=== PATIENT | male | born 1935 | race Caucasian/White ===

== ENCOUNTER 2017-02-12 00:32 | Inpatient (IN) ==
--- NOTE | 2017-02-12 00:44 | Emergency Department Report ---
General Adult HPI - General Stated complaint: fever, can't breath Time Seen by Provider: 02/12/17 00:42 Source: patient, family Mode of arrival: wheelchair Limitations: no limitations - History of Present Illness HPI narrative: 81-year-old male presents to the emergency department with a chief complaint of shortness of breath and chest pain. Patient noted onset of symptoms earlier today. Patient states that recently he have his medications adjusted by his primary care physician. Patient states that he had his diuretic increased but stopped taking the diuretic 2 days ago. He describes his chest pain as mild. It is midsternal without radiation. Patient believes that his chest pain is secondary to the shortness of breath. Patient is anticoagulated on Coumadin. Patient has noted increased swelling in his bilateral lower extremities. Patient was at home when his symptoms began. Symptoms have been persistent in nature since onset. Patient denies any other complaints or associated symptoms. - Related Data Home Medications Medication Instructions Recorded Confirmed Ascorbic Acid [Vitamin C] 500 mg PO DAILY #0 03/18/12 11/28/16 Lutein 6 mg PO DAILY #0 03/18/12 11/28/16 Verapamil HCl [Verapamil ER] 180 mg PO BID #0 03/18/12 11/28/16 Warfarin Sodium 5 mg PO DAILY #0 03/18/12 11/28/16 cloNIDine HCl [Clonidine HCl] 0.1 mg PO BID #0 03/18/12 11/28/16 Famotidine [Acid Branch Lending Manager] 20 mg PO DAILY #0 11/20/12 11/28/16 Hydrocodone/Acetaminophen 1 tab PO BID PRN #0 02/23/15 11/28/16 [Hydrocodon-Acetaminophn 10-325] [place]-3 Fatty Acids/Fish Oil 1 tab PO BID #0 02/23/15 11/28/16 [[place] 3 1,000 mg Softgel] Triamcinolone Acetonide [Nasacort] 2 spray EA NOSTRIL DAILY PRN #0 02/23/1505/15 Vitamins A and D [Vitamin A and D] 2 cap PO HS #0 02/23/15 11/28/16 DiphenhydrAMINE [Benadryl] 25 mg PO HS 11/28/16 11/28/16 Elderberry 400 mg PO BID 11/28/16 11/28/16 Previous Rx's Medication Instructions Recorded Albuterol Sulfate [Proair Hfa] 2 puff INH Q4H #1 inhaler 02/23/15 Allergies Allergy/AdvReac Type Severity Reaction Status Date / Time Sulfa (Sulfonamide Allergy Unknown Verified 02/12/17 00:58 Antibiotics) Review of Systems Constitutional: Denies: fever, chills Eyes: Denies: eye pain, vision change ENT: Denies: ear pain, throat pain Cardiovascular: Reports: chest pain. Denies: palpitations Respiratory: Reports: dyspnea. Denies: cough, wheezes Gastrointestinal: Denies: abdominal pain, nausea, vomiting, diarrhea Genitourinary: Denies: urgency, dysuria Musculoskeletal: Denies: back pain, arthralgia Integumentary: Denies: erythema, rash Neurological: Denies: headache, numbness Psychiatric: Denies: anxiety, depression Endocrine: Denies: fatigue, heat or cold intolerance Hematological/Lymphatic: Denies: easy bleeding, easy bruising Allergic/Immunologic: Denies: facial swelling, urticaria PFSH Patient Stated Medical History Cataracts Yes: SURG Dental Problems WEARS DENTURES Glaucoma Yes: SURG Other HEENT Yes: WEARS GLASSES Hypertension Yes Sleep Apnea Yes: NO CPAP Gastroesophageal Reflux Yes: FOOD RELATED Disease Other Yes: LARGE GROWTH ON KIDNEY Osteoarthritis Yes Blood Transfusions Yes Clinic Medical History Sciatica (Inactive Medical) Surgical History: General: : other. Cardiac: : cardiac cath. Joint: : foot : hi, left hip replacement 2012 Family History: Reviewed and noncontributory - Social History Smoking status: Never smoker Substance use type: does not use Alcohol intake frequency: does not drink Physical Exam - Limitations Limitations: no limitations - General General appearance: alert, in no apparent distress - Normal Exams: Head:: Normocephalic without trauma Eyes:: Pupils are PERRLA w/ EOMI, No scleral icterus, irritation, or foreign bodies noted ENMT:: No facial trauma, nasal exudates, pharyngeal erythema, or exudates are noted Dental: No fractured, loose, or missing teeth noted Neck:: Full range of motion, without adenopathy, JVD, bruits or thyromegaly Chest/Respirations:: Clear all short (course breath sounds bibasilar.), with good airflow, and symmetry bilaterally Cardiovascular:: without murmur or gallop (irregularly irregular rhythm), Pulses 2+ all extremities, capillary refill, <2 seconds all extremities Abdomen:: Bowel sounds positive, soft, non-tender, non-distended, no hepatosplenomegaly, masses or bruits noted Lymphatic:: No lymphadenopathy, or lymphedema noted Musculoskeletal:: No tenderness, or deformity noted, good range of motion, all extremities Integumentary:: No rashes, hives, or bruising noted, hair and nails, without abnormality Neurological:: Patient is alert, and oriented, cranial nerves, motor/sensory/ cerebellar, exams w/o gross deficits, to observation Psychiatric:: Patient exhibits, appropriate attention, emotion and affect Course Vital Signs Temperature 97.8 F 02/12/17 00:38 Pulse Rate 121 H 02/12/17 00:38 Respiratory Rate 24 02/12/17 00:38 Blood Pressure 116/69 02/12/17 00:38 Pulse Oximetry 99 02/12/17 00:38 Temperature 97.8 F 02/12/17 00:38 Pulse Rate 121 H 02/12/17 00:38 Respiratory Rate 24 02/12/17 00:38 Blood Pressure 116/69 02/12/17 00:38 Pulse Oximetry 99 02/12/17 00:38 Medical Decision Making - [facility] Narrative Medical decision making narrative: Labs / imaging were discussed in detail with the patient and family and questions are answered. Patient is given aspirin 324 mg by mouth times one. Patient is given Nitropaste one half inch to the left chest. Patient is given Lasix 40 mg IV times one. Patient is discussed with Dr. Carreno who requested that cardiology be contacted from the ED. Patient is discussed with Dr. Joshi who is comfortable keeping the patient at [facility] and will see and evaluate the patient this morning. He is in agreement with the current plan of management. Patient is admitted to the service of the hospitalist in improved condition. Patient is admitted to the intensive care unit. No further orders from accepting or consulting physicians who were in agreement with the current plan of management. Patient and family are in agreement with the current plan of management. Patient has a long-standing history of atrial fibrillation and is rate controlled in the emergency Department. Patient is anticoagulated on Coumadin. INR is supratheraputic. - Differential Diagnosis atrial fibrillation, CHF, [place], metabolic process - Lab Data Result diagrams: 02/12/17 00:47 02/12/17 00:47 Lab Results 02/12/17 02/12/17 02/12/17 Range/Units 00:47 00:47 00:49 WBC 7.1 (4.5-11.0) T/MM3 RBC 3.11 L (4.50-5.90) M/MM3 Hgb 10.2 L (13.5-17.5) GM/DL Hct 32.8 L (41-53) % MCV 105.5 H (80-100) UM3 MCH 32.8 (26-34) UUG MCHC 31.1 (31-37) GM/DL RDW Std Deviation 60.3 H (36.9-50.2) FL Plt Count 239 (130-400) T/MM3 MPV 10.9 (9.4-12.4) UM3 Immature Gran % (Auto) 0.1 (0.0-0.5) % Neut % (Auto) 70.7 H (33-66) % Lymph % (Auto) 13.7 L (23-45) % [place] % (Auto) 12.5 H (0-9.0) % Eos % (Auto) 2.7 (0-4) % Baso % (Auto) 0.3 (0-2) % Neut # (Auto) 5.0 (1.8-7.7) T/MM3 Lymph # (Auto) 1.0 (1-4.8) T/MM3 [place] # (Auto) 0.9 H (0-0.8) T/MM3 Eos # (Auto) 0.2 (0-0.5) T/MM3 Baso # (Auto) 0.0 (0-0.2) T/MM3 Abs Immat Gran (auto) 0.01 (0.00-0.03) T/MM3 INR 5.81 H* (0.99-1.21) Turbidity < 20 (0-20) Sodium 140 (134-144) MEQ/L Potassium 4.6 (3.6-5) MEQ/L Chloride 102 (98-107) MEQ/L Carbon Dioxide 25 (22-30) MEQ/L Anion Gap 13 (5-15) MEQ/L Creatinine 2.7 H (0.8-1.5) MG/DL GFR Calculation 23 BUN/Creatinine Ratio 19 (6-26) RATIO Glucose 138 H (75-110) MG/DL Calculated Osmolality 285 H (261-280) MOSM/KG Calcium 10.0 (8.4-10.2) MG/DL Total Bilirubin 0.90 (0.20-1.30) MG/DL Icterus Index < 2 (0-7) AST 40 (17-59) U/L ALT 26 (21-72) U/L Alkaline Phosphatase 67 (38-126) U/L Total Protein 7.0 (6.3-8.2) G/DL Albumin 3.9 (3.5-5.0) G/DL Globulin 3.1 (2.4-3.6) G/DL Albumin/Globulin Ratio 1.3 (1.1-2.2) RATIO Specimen Hemolysis < 15 (0-25) - Radiology Data Chest x-ray: Potential fluid overload pattern. - EKG Data EKG #1 EKG results narrative: Atrial fibrillation. 109 bpm. No STEMI. Disposition Clinical Impression: Congestive heart failure Qualifiers: Congestive heart failure type: unspecified congestive heart failure type Congestive heart failure chronicity: unspecified congestive heart failure chronicity Qualified Code(s): I50.9 - Heart failure, unspecified Afib Qualifiers: Atrial fibrillation type: unspecified Qualified Code(s): I48.91 - Unspecified atrial fibrillation Condition: Stable Prescriptions: No Action Warfarin Sodium 5 mg PO DAILY #0 Verapamil HCl [Verapamil ER] 180 mg PO BID #0 [place]-3 Fatty Acids/Fish Oil [[place] 3 1,000 mg Softgel] 1 tab PO BID #0 Vitamins A and D [Vitamin A and D] 2 cap PO HS #0 Albuterol Sulfate [Proair Hfa] 2 puff INH Q4H #1 inhaler DiphenhydrAMINE [Benadryl] 25 mg PO HS Elderberry 400 mg PO BID cloNIDine HCl [Clonidine HCl] 0.1 mg PO BID #0 Lutein 6 mg PO DAILY #0 Ascorbic Acid [Vitamin C] 500 mg PO DAILY #0 Famotidine [Acid Branch Lending Manager] 20 mg PO DAILY #0 Hydrocodone/Acetaminophen [Hydrocodon-Acetaminophn 10-325] 1 tab PO BID PRN # 0 PRN Reason: Pain Triamcinolone Acetonide [Nasacort] 2 spray EA NOSTRIL DAILY PRN #0 PRN Reason: Prn Orders Referrals: MEAGAN THOMPSON [Primary Care Provider] - Time of Disposition: 01:45 (Admit. Dr. Anaya. ) - Seen By: physician
[2017-02-12] MEDS: SALINE FLUSH 10ml SYRINGE IVF PRN ×2 (00:46→08:10)
[2017-02-12] MEDS ORDERED: NITROGLYCERIN 2% OINTMENT 1gm PACKET TP ONE (02:00)
[2017-02-12] MEDS ORDERED: ASPIRIN 81 MG CHEWABLE TABLET PO ONE (02:00)
[2017-02-12] MEDS ORDERED: FUROSEMIDE 40 MG/4 ML INJECTION IVP ONE (02:00)
[2017-02-12] MEDS ORDERED: DiltiaZEM IR 30 MG TABLET PO ONE (02:15)
[2017-02-12 04:51] VITALS: BMI 24.5
--- NOTE | 2017-02-12 06:58 | History & Physical Report ---
History of Present Illness Date: 02/12/17 Chief complaint: chest pain HPI: 81 yo M with PMH of CHF and A. Jose Antonio presented to the ED with reports of SOA and chest pain. He reports his symptoms started about 1 day ago, he states that recently he have his medications adjusted by his primary care physician. He reports that he did stop taking his lasix 2 days ago because it "wasn't working ". He describes his chest pain as mild. It is midsternal without radiation. Patient believes that his chest pain is secondary to the shortness of breath. Patient is anticoagulated on Coumadin. Patient has noted increased swelling in his bilateral lower extremities. Patient was at home when his symptoms began. Symptoms have been persistent in nature since onset. Patient denies any other complaints or associated symptoms. Patient was found to have some mild EKG changes, Cardiology was consulted, they recommended admission and patient would be seen in AM. Review of Systems All systems PM: 10-point ROS was reviewed, no additional remarkable complaints except PFSH Patient Stated Medical History Cataracts Yes: SURG Dental Problems WEARS DENTURES Glaucoma Yes: SURG Other HEENT Yes: WEARS GLASSES Cardiac Arrhythmia Yes Hypertension Yes Sleep Apnea Yes: NO CPAP Gastroesophageal Reflux Yes: FOOD RELATED Disease Other Yes: LARGE GROWTH ON KIDNEY Osteoarthritis Yes Blood Transfusions Yes Clinic Medical History Congestive heart failure (Acute Medical) Afib (Acute Medical) Sciatica (Inactive Medical) Surgical History: General: : other. Cardiac: : cardiac cath. Joint: : foot : hi, left hip replacement 2013 - Social History Smoking status: Former smoker Medications Home Medications Medication Instructions Recorded Confirmed Type Ascorbic Acid [Vitamin C] 500 mg PO DAILY #0 03/18/12 11/28/16 History Lutein 6 mg PO DAILY #0 03/18/12 11/28/16 History Verapamil HCl [Verapamil ER] 180 mg PO BID #0 03/18/12 11/28/16 History Warfarin Sodium 5 mg PO DAILY #0 03/18/12 11/28/16 History cloNIDine HCl [Clonidine HCl] 0.1 mg PO BID #0 03/18/12 11/28/16 History Famotidine [Acid Launch Check Out] 20 mg PO DAILY #0 11/20/12 11/28/16 History Hydrocodone/Acetaminophen 1 tab PO BID PRN #0 02/23/15 11/28/16 History [Hydrocodon-Acetaminophn 10-325] [place]-3 Fatty Acids/Fish Oil 1 tab PO BID #0 02/23/15 11/28/16 History [[place] 3 1,000 mg Softgel] Triamcinolone Acetonide [Nasacort] 2 spray EA NOSTRIL DAILY PRN #0 02/23/1505/15 History Vitamins A and D [Vitamin A and D] 2 cap PO HS #0 02/23/15 11/28/16 History DiphenhydrAMINE [Benadryl] 25 mg PO HS 11/28/16 11/28/16 History Elderberry 400 mg PO BID 11/28/16 11/28/16 History Bumetanide Tab [Bumex Tab] 1 mg PO 02/12/17 History Furosemide [Lasix] 1 tab PO BID 02/12/17 02/12/17 History Allergies Allergy/AdvReac Type Severity Reaction Status Date / Time Sulfa (Sulfonamide Allergy Unknown Verified 02/12/17 00:58 Antibiotics) Exam Vital Signs: Temperature 98.5 F 02/12/17 02:30 Pulse Rate 105 H 02/12/17 05:30 Respiratory Rate 23 02/12/17 05:30 Blood Pressure 131/79 02/12/17 05:00 Pulse Oximetry 92 02/12/17 05:30 Telemetry Rhythm: A-fib Height/Weight/BMI: Height 1.88 m Weight 86.9 kg Body Mass Index 24.5 - Constitutional Present: no acute distress, well nourished, well developed - Routine Respiratory Exam Present: crackles (B/L lower lung short) - Routine Cardiovascular Exam Present: irregularly irregular - Routine Abdominal Exam Present: soft, normoactive bowel sounds, non distended. Absent: tenderness - Routine Skin Exam Present: dry, warm - Routine Neurological Exam Present: alert, oriented X3, CN II-XII intact - Routine Psychiatric Exam Present: normal affect Results - Labs CBC & Chem 7: 02/12/17 00:47 02/12/17 12:49 Assessment and Plan (1) Congestive heart failure Problem details: Acute Current visit: Yes Status: Acute (2) Afib Problem details: With RVR Current visit: Yes Status: Acute (3) Chest pain Current visit: Yes Status: Acute (4) Supratherapeutic INR Current visit: Yes Status: Acute Assessment and Plan: Patient given IV lasix, ASA and nitro paste in the ED. Cardiology consulted, patient to be seen in AM. will trend cardiac enzymes, give 30mg Po cardizem for his A. Fib. Will not give vit K for elevated INR at this time, but will hold coumadin until it is below 3. Patient reports some mild improvement of symptoms after lasix given. Monitor in CCU. Jaymie Tierney M.D. 02/12/17 1:[address] Carreno's note reviewed. Mr. Cuadra interviewed and examined. The patient 's granddaughter provides supplemental history. Records from Dr. Aguiar's office were obtained. CC: Chest pain/dyspnea HPI: Mr. Cuadra is an 81-year-old gentleman with known history of atrial fibrillation was experiencing increased dyspnea for partially one month with accompanying lower extremity edema. Lasix was initiated and the patient was taking multiple doses daily with dose up to 100 mg daily with minimal effect. He says primary care physician 2 days ago and was switched to Bumex 1 mg twice a day but dyspnea has persisted and worsened from exertional dyspnea with nocturnal orthopnea to dyspnea at rest. Patient reports he's had a nonproductive cough and has been sleeping in a chair the last 2 days. He denies PND. He denies palpitations but developed chest pain yesterday evening in the substernal region characterized as a hard pain without nausea, radiation, or diaphoresis. He's had a past cardiac catheterization by Dr. Castro and was told he did not require interventions. Mr. Cuadra presented to the emergency room due to worsening dyspnea and chest pain yesterday evening. EKG demonstrated lateral T-wave inversion possibly due to LVH and initial troponin was 0.074. Patient was in CCU for atrial fibrillation with rapid ventricular response and management of chest pain. Patient reports had a chest x-ray done in the office 2 days ago and was told it was unremarkable. PH/SH/FH: agree with that recorded above with additions of history COPD and large abdominal hernia; lumbar spinal stenosis, macrocytic anemia and chronic renal failure by outpatient records with creatinine 2.29/GFR 25 in 10/12. Past surgical history includes a nephrectomy for benign tumor approximate 5 years ago , TURP, resection of part of the toe due to repetitive trauma, and the previously mentioned left CANDY in March 2012. FH-father , coronary disease; mother old age; one brother skin cancer. SH-patient denies history of smoking, alcohol use, or illicit drug use. He chewed tobacco for many years discontinuing 15 years ago. PCP is Dr. Queenie Aguiar ; DPOA is shared by Irving Cuadra and granddaughter Aylin Guaman KENNEDI (phone numbers on whiteboard in ICU). Patient does not wish to be intubated but is not opposed to acute cardiac interventions if they are needed. ROS: 10 point review as per history of present illness and patient reports having a wound on his sacrum that causes discomfort and limits his ability to change physicians, minor cough when he eats, and recent development of right sciatica radiating down the lateral leg to the knee without numbness for which he's recently seen a back surgeon; patient has to hold on to objects to walk following development of sciatica. EXAM: General-NAD, alert; 98.5 152/67, heart rate 95-108 in my presence HEENT-PERRL, EOMI without nystagmus, conjunctiva clear, sclera anicteric, conjugate gaze, facial structures symmetric, oropharynx clear, neck supple and without adenopathy Lungs-respirations nonlabored at present, good airflow, crackles mid right lung field posteriorly and left lower lung field; decreased breath sounds bilaterally third of the way up posteriorly Cardiac-irregularly irregular, S1-S2, no murmur appreciated Abd-soft, nontender, diminished bowel sounds, large mid abdominal hernia present -nontender Ext-+3 pitting bilateral lower extremity edema Skin-without generalized rash, no wounds on exposed skin surfaces; wound care describes small stage III sacral decubitus ulcer with slough present Neuro-CN 3-12 intact, motor tone/power grossly intact without evidence of weakness right lower extremity associated with sciatica, sensation intact to light touch 4 extremities Psych-calm, cooperative DATA: Chest x-ray reviewed by myself demonstrating cardiomegaly with bilateral pleural effusions and flattened diaphragms, increased vascular markings- consistent with CHF and probable underlying COPD. Flattened diaphragms seen on past x-rays. EKG with sinus rhythm, rapid ventricular response (109), LVH with secondary changes, no acute ST changes by my review. White count 7.1, hemoglobin 10.1 with MCV of 105.5; INR 5.81 Electrolytes unremarkable, BUN 51, creatinine 2.7-2.5, liver enzymes unremarkable Troponin 0.0667 0.074-0.060, proBNP 13,100 BUN/creatinine 42/2.54 with BNP 809 (normal range 15-100) in the office on 02/09 A/P: Acute congestive heart failure Pulmonary edema Atrial fibrillation with RVR Chest pain Acute on chronic renal failure-stage IV Obstructive sleep apnea-possible Hypertension Macrocytic anemia Lumbar spinal stenosis COPD Abdominal hernia DJD Coagulopathy due to warfarin Patient is admitted to the intensive care unit. Rate control was improved overnight with bolus doses of diltiazem. Given chest pain in association with CHF will initiate carvedilol. Cardiology consult-Dr. Joshi. Echocardiogram ordered. Serial troponins unremarkable today. Diuresis initiated overnight with Lasix, minimally effective and will dose Bumex now. Continue to monitor urine output and weights. Breathing treatments as needed. Home medications being updated; warfarin on hold due to elevated INR. Pharmacy consult to assist with warfarin management. After condition stabilizes will obtain nocturnal oximetry. Creatinine slightly above baseline-monitor closely with diuresis; patient is not routinely followed by a clinical nurse occupational medicine but did see Dr. Nguyen in the past. DO NOT INTUBATE order written per patient request. Patient will return to the care of Dr. Aguiar following hospitalization. DVT Prophylaxis: Coumadin, other GI Prophylaxis: Protonix Resuscitation Status: Full Code Hospital Course Summary Disclaimer: The visit summary below is not to be considered part of the above Progress Note. Hospital Course: 02/12/17 Patient is admitted to the intensive care unit with dyspnea, chest pain, and A. fib with RVR. Rate control was improved overnight with bolus doses of diltiazem. Given chest pain in association with CHF will initiate carvedilol. Cardiology consult-Dr. Joshi. Echocardiogram ordered. Serial troponins unremarkable today. Diuresis initiated overnight with Lasix, minimally effective and will dose Bumex now. Continue to monitor urine output and weights. Breathing treatments as needed. Home medications being updated; warfarin on hold due to elevated INR. Pharmacy consult to assist with warfarin management. After condition stabilizes will obtain nocturnal oximetry. Creatinine slightly above baseline-monitor closely with diuresis; patient is not routinely followed by a clinical nurse occupational medicine but did see Dr. Nguyen in the past. DO NOT INTUBATE order written per patient request.
--- NOTE | 2017-02-12 07:59 | XRay Report ---
Indication: SOB PROCEDURE: XR chest 1V: Encounter: Initial Comparison: February 23, 2015 Findings: Pulmonary vascularity is prominent. Small bilateral pleural effusions. No pneumothorax. Cardiac silhouette is moderately enlarged. Mediastinal contours are stable. Impression: Moderate pulmonary edema, likely due to CHF. .
[2017-02-12] MEDS ORDERED: DiltiaZEM 25 MG/5 ML INJECTION IVP ONE ×2 (08:55→22:56)
[2017-02-12] MEDS: SALINE FLUSH 10ml SYRINGE IV PRN ×3 (09:12→15:42)
--- NOTE | 2017-02-12 09:38 | Wound Care Progress Note ---
Wound Management - Patient Status Premedicated Prior to Dressing Change: No - Wound Right Sacrum Wound Type: Pressure Injury Wound Present on Admission?: Yes Wound Staging: Stage III Length: 0.5 Width: 0.4 Depth: 0.1 Wound Bed Appearance: Slough Alicja Wound Appearance: Necrotic Tunneling: No Undermining: No Drainage Amount: None Drainage Odor: No Odor Dressing Status: Changed Primary Dressing: Foam Dressing Dressing Change Date: 02/12/17 Dressing Change Time: 09:37 Dressing Change Patient Tolerance: Tolerated Well (Had a long discussion with pt and family about pt offloading and possiblity of a roho for chairs. Will ask attending to write a script for an offloading cushion.)
[2017-02-12] MEDS ORDERED: CARVEDILOL 6.25 MG TABLET PO SCH (11:06)
[2017-02-12] MEDS ORDERED: WARFARIN - PHARMACY CONSULT MC ONE (11:07)
--- NOTE | 2017-02-12 12:11 | Pharmacy Consult ---
Pharmacy Consult-Warfarin - Laboratory Information ADMIT INR ON 02/12/17 @ 00:49 IS 5.81 - Consult Information COUMADIN CONSULT (Initial): 81 y.o. male with CHF, CP and A Fib admitted with an INR of 5.81. Home med dose of warfarin is 5 mg po daily. (SrCr is 2.7) Dx: CHF with CP and A-Fib Baseline INR = 5.81 Will HOLD Warfarin until INR drops below 3.0. Thank you. Francy Rush, PharmD
--- NOTE | 2017-02-12 13:06 | Cardiology Consult Note ---
<Queenie Murdock - Last Filed: 02/12/17 18:22> History of Present Illness Consult date: 02/12/17 Requesting physician: Ophelia Tierney Consult reason: chest pain, atrial fibrillation Chief complaint: afib, chest pain History of present illness: Corona is a 81 year old male with a history of CHF and A. Fib who presented to the ED with reports of SOA and chest pain. He reported his symptoms started about 1 day ago, he states that recently had his medications adjusted by his primary care physician. He reports that he did stop taking his Lasix 2 days ago because it "wasn't working". He describes his chest pain as mild. It is midsternal without radiation. He believes that his chest pain is secondary to the shortness of breath. He is anticoagulated on Coumadin. He has noted increased swelling in his bilateral lower extremities. Symptoms have been persistent in nature since onset. He is examined in the CCU. He has some conversational dyspnea and is on O2/NC. He denies chest pain at this time but describes his chest pain and substernal pain, denies pressure or tightness. No other symptoms other than dyspnea. He denies recent illness, fever, chills, cough, sore throat, N/V/D, dysuria. Review of Systems - Constitutional Constitutional: Present: as per HPI. Absent: chills, fever(s) - EENMT Eyes: Absent: change in vision Balance: Absent: vertigo Mouth/Throat: Absent: sore throat - Cardiovascular Cardiovascular: Present: chest pain, dyspnea on exertion, orthopnea (sleeps on incline). Absent: palpitations, syncope Vascular: Present: pedal edema - Respiratory Respiratory: Present: cough, dyspnea, dyspnea on exertion - Gastrointestinal Gastrointestinal: Absent: constipation, diarrhea, nausea, vomiting - Genitourinary Genitourinary: Absent: dysuria - Integumentary/Breasts Integumentary: Absent: rash - Neurological Neurological: Absent: dizziness - Endocrine Endocrine: Absent: palpitations PFSH Patient Stated Medical History Cataracts Yes: SURG Dental Problems WEARS DENTURES Glaucoma Yes: SURG Other HEENT Yes: WEARS GLASSES Cardiac Arrhythmia Yes Hypertension Yes Sleep Apnea Yes: NO CPAP Gastroesophageal Reflux Yes: FOOD RELATED Disease Other Yes: 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 Cardiac: : cardiac cath. Joint: : foot : hi, left hip replacement 2012 Family History: Father - [place] in 70s Son - CVA at 58, DM Brother - [place] - Social History Smoking status: Former smoker Substance use type: does not use Alcohol intake frequency: does not drink Housing: house Household members: none Current occupational status: retired Current residence: Apartment/Private Home Medications Home Medications Medication Instructions Recorded Confirmed Type Verapamil HCl [Verapamil ER] 180 mg PO BID #0 03/18/12 02/12/17 History Warfarin Sodium 5 mg PO DAILY #0 03/18/12 02/12/17 History cloNIDine HCl [Clonidine HCl] 0.1 mg PO BID #0 03/18/12 02/12/17 History Triamcinolone Acetonide [Nasacort] 2 spray EA NOSTRIL DAILY PRN #0 02/23/15 History Vitamins A and D [Vitamin A and D] 2 cap PO HS #0 02/23/15 02/12/17 History DiphenhydrAMINE [Benadryl] 50 mg PO HS 11/28/16 02/12/17 History Diazepam [Valium] 5 mg PO PRN 02/12/17 02/12/17 History Furosemide [Lasix] 1 tab PO BID 02/12/17 02/12/17 History Lactobacillus Acidophilus 1 each PO 02/12/17 History [Probiotic] Loratadine 10 mg PO DAILY 02/12/17 02/12/17 History Allergies Allergy/AdvReac Type Severity Reaction Status Date / Time Sulfa (Sulfonamide Allergy Unknown Verified 02/12/17 00:58 Antibiotics) Exam Vital signs: Temperature 97.6 F 02/12/17 12:00 Pulse Rate 104 H 02/12/17 12:00 Respiratory Rate 24 02/12/17 12:00 Blood Pressure 147/69 H 02/12/17 12:00 Pulse Oximetry 98 02/12/17 12:00 - Constitutional mild distress, well nourished, cooperative - Routine HEENT Exam Head: Present: normocephalic ENT: Present: mucous membranes moist - Routine Neck Exam Absent: carotid bruit - Routine Chest/Breast/Axilla Exam Chest wall: Absent: tenderness - Routine Respiratory Exam Present: rales (bibasilar rales), diminished air movement. Absent: CTA bilaterally - Routine Cardiovascular Exam Present: no murmur, irregular rhythm - Routine Abdominal Exam Present: soft, normoactive bowel sounds - Routine Extremities Exam Present: edema - Routine Skin Exam Present: intact, dry, warm - Routine Neurological Exam Present: alert, oriented X3 - Routine Psychiatric Exam Present: normal affect, normal thought process Results 02/12/17 00:47 02/12/17 12:49 Cardiac Enzymes 02/12/17 Range/Units 08:02 Troponin I 0.074 (0-0.12) ng/ml Intake and Output 02/11/17 02/12/17 02/12/17 22:59 06:59 14:59 Intake Total 120 / 120 Output Total 500 / 500 115 / 115 Balance -500 / -500 5 / 5 Intake: Oral 120 / 120 Output: Urine 350 / 350 Urine Amount (Catheter) 150 / 150 115 / 115 Other: Urine Appearance Clear Urine Color Yellow Yellow Weight 191 lb 9.307 oz 204 lb 2.369 oz Patient Weight 02/13/17 06:59 Weight 204 lb 2.369 oz - Imaging and Cardiology Echo: pending Imaging & Cardiology Narrative: Date of Exam: 02/12/17 Ordering Provider: Ethan Mcnamara DO Type of Exam(s): XR chest 1V Reason for Exam(s): SOB Indication: SOB PROCEDURE: XR chest 1V: Encounter: Initial Comparison: February 23, 2015 Findings: Pulmonary vascularity is prominent. Small bilateral pleural effusions. No pneumothorax. Cardiac silhouette is moderately enlarged. Mediastinal contours are stable. Impression: Moderate pulmonary edema, likely due to CHF. 02/12/17 13:19 02/12/17 18:23 Date of Exam: 02/12/17 Type of Exam(s): US echo doppler complete DATE OF PROCEDURE February 12, 2017 This is a two-dimensional echo with spectral Doppler, color-flow and M-mode. It was obtained in a patient with congestive heart failure. Left atrium is dilated. Left ventricular end-diastolic dimension is increased. Left ventricular wall thickness is normal. Severe global hypokinesia is present with ejection fraction of about 20%. Right atrium is dilated. Right ventricle is normal. Aortic root dimension is normal. Mitral valve shows [id number] mitral regurgitation. Aortic valve is a trileaflet structure with moderate aortic insufficiency. Tricuspid valve shows mild-to- moderate tricuspid regurgitation with moderate pulmonary hypertension with estimated pulmonary artery systolic pressure of 52. Pulmonary valve shows mild pulmonary insufficiency. There is no pericardial effusion. Pleural effusion is present. IMPRESSION 1. Severe global hypokinesia with ejection fraction of about 20%. 2. Pleural effusion present. 3. Biatrial dilation. 4. Left ventricular dilation. 5. Gcezarov-ee-etolox severe mitral regurgitation. 6. Moderate aortic insufficiency. 7. Xzzb-gl-blsshctg tricuspid regurgitation with moderate pulmonary hypertension with estimated pulmonary artery systolic pressure of 52. 8. Mild pulmonary insufficiency. EKG interpretations - EKG EKG shows: atrial fibrillation Assessment and Plan - Assessment and Plan (1) Acute systolic CHF (congestive heart failure) Current visit: Yes Status: Acute EF 20% on Echo - Milrinone 0.375mcg/kg/min drip, hold Coreg - Bumex 2mg IV push and then Bumex 0.5mg /hr drip - Potassium 20meq BID for replacement - Strict I&O, restrict fluids to 2L/day - Monitor renal and electrolytes (2) Chest pain Current visit: Yes Status: Acute Denies chest pain at this time - Trend serial troponin levels - EKG prn chest pain (3) Supratherapeutic INR Current visit: Yes Status: Acute per attending (4) Afib Problem details: With RVR Current visit: Yes Status: Chronic Chronic paroxysmal atrial fibrillation - anticoagulated on warfarin - suboptimal rate control, should improve with diuresis - Continue to monitor cardiac telemetry, may need to add Digoxin for rate control (5) Essential (primary) hypertension Current visit: Yes Status: Chronic Hold home BP meds for now while on Milrinone drip. - Assessment and Plan 02/12/17 Acute systolic heart failure: EF 20% on Echo - Milrinone 0.375mcg/kg/min drip, hold Coreg - Bumex 2mg IV push and then Bumex 0.5mg /hr drip - Potassium 20meq BID for replacement - Strict I&O, restrict fluids to 2L/day - Monitor renal and electrolytes Chronic paroxysmal atrial fibrillation - anticoagulated on warfarin - suboptimal rate control, should improve with diuresis - Continue to monitor cardiac telemetry, may need to add Digoxin for rate control. Chest pain: Denies chest pain at this time - Trend serial troponin levels - EKG prn chest pain Thank you for allowing us to participate in the care of this patient. Hospital Course Summary Disclaimer: The visit summary below is not to be considered part of the above Progress Note. 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 Osteoarthritis Yes Blood Transfusions Yes Clinic Medical History Congestive heart failure (Acute Medical) Acute Afib (Chronic Medical) With RVR Supratherapeutic INR (Acute Medical) Chest pain (Acute Medical) Acute systolic CHF (congestive heart failure) (Acute Medical) Essential (primary) hypertension (Chronic Medical) Sciatica (Inactive Medical) Exam Vital signs: Temperature 98.1 F 02/16/17 03:32 Pulse Rate 83 02/16/17 03:32 Respiratory Rate 20 02/16/17 03:32 Blood Pressure 145/62 H 02/16/17 03:32 Pulse Oximetry 93 02/16/17 03:32 Results 02/16/17 03:56 02/16/17 03:56 CBC 02/16/17 Range/Units 03:56 WBC 8.2 (4.5-11.0) T/MM3 RBC 3.28 L (4.50-5.90) M/MM3 Hgb 10.7 L (13.5-17.5) GM/DL Hct 34.0 L (41-53) % Plt Count 305 (130-400) T/MM3 Neut # (Auto) 4.8 (1.8-7.7) T/MM3 Lymph # (Auto) 1.6 (1-4.8) T/MM3 [place] # (Auto) 1.3 H (0-0.8) T/MM3 Eos # (Auto) 0.4 (0-0.5) T/MM3 Baso # (Auto) 0.0 (0-0.2) T/MM3 Comprehensive Metabolic Panel 02/16/17 Range/Units 03:56 Sodium 142 (134-144) MEQ/L Potassium 4.5 (3.6-5) MEQ/L Chloride 98 (98-107) MEQ/L Carbon Dioxide 35 H (22-30) MEQ/L BUN 61.0 H* (9-20) MG/DL Creatinine 2.5 H (0.8-1.5) MG/DL Glucose 96 (75-110) MG/DL Calcium 10.0 (8.4-10.2) MG/DL Intake and Output 02/15/17 02/16/17 02/16/17 22:59 06:59 14:59 Intake Total 350 / 350 Output Total 210 / 210 1050 / 1050 Balance 140 / 140 -1050 / -1050 Intake: Oral 350 / 350 Output: Urine Amount (Catheter) 210 / 210 1050 / 1050 Other: Urine Appearance Clear Urine Color Pale Yellow Assessment and Plan - Attestation Attestation Narrative: 02/16/17 07:40 Recommendation After examining the patient I agree with the above assessment. I am involved in the formulation of the patient's plan of care. - Assessment and Plan (1) Afib Problem details: With RVR Current visit: Yes Status: Chronic (2) Supratherapeutic INR Current visit: Yes Status: Acute (3) Chest pain Current visit: Yes Status: Acute (4) Acute systolic CHF (congestive heart failure) Current visit: Yes Status: Acute (5) Essential (primary) hypertension Current visit: Yes Status: Chronic Hospital Course Summary Disclaimer: The visit summary below is not to be considered part of the above Progress Note.
[2017-02-12] MEDS ORDERED: ALBUTEROL/IPRATROPIUM 2.5mg-0.5mg/3ml NEB AEROSOL PRN (14:24)
[2017-02-12] MEDS ORDERED: BUMETANIDE 2.5mg/10ml INJECTION IVP ONE (14:45)
[2017-02-12] MEDS: MILRINONE DRIP 20 MG/100 ML BAG IV SCH ×2 (15:41→23:11)
[2017-02-12] MEDS: BUMETANIDE DRIP 25 MG in RTU-SALINE 100 ML IV SCH (15:59)
--- NOTE | 2017-02-12 17:36 | Echocardiogram ---
DATE OF PROCEDURE February 12, 2017 This is a two-dimensional echo with spectral Doppler, color-flow and M-mode. It was obtained in a patient with congestive heart failure. Left atrium is dilated. Left ventricular end-diastolic dimension is increased. Left ventricular wall thickness is normal. Severe global hypokinesia is present with ejection fraction of about 20%. Right atrium is dilated. Right ventricle is normal. Aortic root dimension is normal. Mitral valve shows qhpubvdk-oh-bnnktn mitral regurgitation. Aortic valve is a trileaflet structure with moderate aortic insufficiency. Tricuspid valve shows mild-to- moderate tricuspid regurgitation with moderate pulmonary hypertension with estimated pulmonary artery systolic pressure of 52. Pulmonary valve shows mild pulmonary insufficiency. There is no pericardial effusion. Pleural effusion is present. IMPRESSION 1. Severe global hypokinesia with ejection fraction of about 20%. 2. Pleural effusion present. 3. Biatrial dilation. 4. Left ventricular dilation. 5. Uvbdgtdz-ey-yhapbt severe mitral regurgitation. 6. Moderate aortic insufficiency. 7. Objs-fj-jwuymsdg tricuspid regurgitation with moderate pulmonary hypertension with estimated pulmonary artery systolic pressure of 52. 8. Mild pulmonary insufficiency. MTDD
[2017-02-13] MEDS: MILRINONE DRIP 20 MG/100 ML BAG IV SCH ×2 (02:10→10:12)
--- NOTE | 2017-02-13 08:28 | Progress Note ---
- Date 02/13/17 Subjective: Mr. Cuadra is an 81-year-old gentleman with known history of atrial fibrillation was experiencing increased dyspnea for partially one month with accompanying lower extremity edema. Lasix was initiated and the patient was taking multiple doses daily with dose up to 100 mg daily with minimal effect. He says primary care physician 2 days ago and was switched to Bumex 1 mg twice a day but dyspnea has persisted and worsened from exertional dyspnea with nocturnal orthopnea to dyspnea at rest. Patient reports he's had a nonproductive cough and has been sleeping in a chair the last 2 days. He denies PND. He denies palpitations but developed chest pain yesterday evening in the substernal region characterized as a hard pain without nausea, radiation, or diaphoresis. He's had a past cardiac catheterization by Dr. Castro and was told he did not require interventions. Mr. Cuadra presented to the emergency room due to worsening dyspnea and chest pain yesterday evening. EKG demonstrated lateral T- wave inversion possibly due to LVH and initial troponin was 0.074. Patient was in CCU for atrial fibrillation with rapid ventricular response and management of chest pain. Patient reports had a chest x-ray done in the office 2 days ago and was told it was unremarkable. An echo was performed showing: Severe global hypokinesia with ejection fraction of about 20%. Pleural effusion present. Biatrial dilation. Left ventricular dilation. Zgcfgsqu-tj-oswbbs severe mitral regurgitation. Moderate aortic insufficiency. Wojb-te-qnbvbkzj tricuspid regurgitation with moderate pulmonary hypertension with estimated pulmonary artery systolic pressure of 52. Mild pulmonary insufficiency, PAP 52mmHg. Today, he is up in the chair and currently on RA,. He is eating breakfast. He reports feeling much better but he knows he continues to have too much fluid on board. He does complain of mild chest pressure. Still SOA. Thinks he needs a laxative. He is passing gas. Cadet in place, clear yellow urine. BP reasonable, HR tachy. Nsg reports decub on right buttock. Objective Vital signs: Temperature 97.7 F 02/13/17 00:00 Pulse Rate 122 H 02/13/17 06:00 Respiratory Rate 27 H 02/13/17 06:00 Blood Pressure 125/63 02/13/17 06:00 Pulse Oximetry 97 02/13/17 06:00 Rhythm: Atrial Fibrillation with RVR Height/Weight/BMI: Height 1.88 m Weight 92.6 kg Body Mass Index 24.5 Comments: Gen: alert and oriented. NAD. Skin: warm and dry HEENT: NC/AT PERRL, EOMI, Sclera, lids and conjunctiva wnl. MMM. OP clear. Neck: Mild JVD. Carotids 2+ no bruits. Lungs: bibasilar crackles, diminished BS. CV: irregular. Rapid. 3/6 murmur. Abd: soft. +BS. NT/ND, Mid abdominal hernia noted MS: 2+ LE edema. Good strength, ROM Neuro: No focal deficit Results - Labs CBC & Chem 7: 02/13/17 04:30 02/13/17 04:30 Labs: Laboratory Results - last 48 hr 02/12/17 02/12/17 02/12/17 00:47 00:47 00:49 WBC 7.1 RBC 3.11 L Hgb 10.2 L Hct 32.8 L MCV 105.5 H MCH 32.8 MCHC 31.1 RDW Std Deviation 60.3 H Plt Count 239 MPV 10.9 Immature Gran % (Auto) 0.1 Neut % (Auto) 70.7 H Lymph % (Auto) 13.7 L [place] % (Auto) 12.5 H Eos % (Auto) 2.7 Baso % (Auto) 0.3 Neut # (Auto) 5.0 Lymph # (Auto) 1.0 [place] # (Auto) 0.9 H Eos # (Auto) 0.2 Baso # (Auto) 0.0 Abs Immat Gran (auto) 0.01 INR 5.81 H* Turbidity < 20 Sodium 140 Potassium 4.6 Chloride 102 Carbon Dioxide 25 Anion Gap 13 BUN 51.0 H* Creatinine 2.7 H GFR Calculation 23 BUN/Creatinine Ratio 19 Glucose 138 H Calculated Osmolality 285 H Calcium 10.0 Phosphorus Magnesium Total Bilirubin 0.90 Icterus Index < 2 AST 40 ALT 26 Alkaline Phosphatase 67 Creatine Kinase Troponin I 0.066 B-Natriuretic Peptide 45089 H Total Protein 7.0 Albumin 3.9 Globulin 3.1 Albumin/Globulin Ratio 1.3 TSH Specimen Hemolysis < 15 02/12/17 02/12/17 02/13/17 08:02 12:49 04:30 WBC 6.8 RBC 2.75 L Hgb 9.0 L D Hct 28.3 L D MCV 102.9 H MCH 32.7 MCHC 31.8 RDW Std Deviation 55.3 H Plt Count 229 MPV 10.6 Immature Gran % (Auto) 0.1 Neut % (Auto) 63.0 Lymph % (Auto) 18.2 L [place] % (Auto) 12.7 H Eos % (Auto) 5.6 H Baso % (Auto) 0.4 Neut # (Auto) 4.3 Lymph # (Auto) 1.2 [place] # (Auto) 0.9 H Eos # (Auto) 0.4 Baso # (Auto) 0.0 Abs Immat Gran (auto) 0.01 INR Turbidity < 20 Sodium 141 Potassium 4.1 Chloride 102 Carbon Dioxide 28 Anion Gap 11 BUN 52.0 H* Creatinine 2.5 H D GFR Calculation 25 BUN/Creatinine Ratio 21 Glucose 115 H Calculated Osmolality 286 H Calcium 9.5 Phosphorus 3.9 Magnesium Total Bilirubin Icterus Index < 2 AST ALT Alkaline Phosphatase Creatine Kinase 47 L Troponin I 0.074 0.060 B-Natriuretic Peptide Total Protein Albumin 3.5 Globulin Albumin/Globulin Ratio TSH Specimen Hemolysis < 15 < 15 02/13/17 02/13/17 04:30 04:30 WBC RBC Hgb Hct MCV MCH MCHC RDW Std Deviation Plt Count MPV Immature Gran % (Auto) Neut % (Auto) Lymph % (Auto) [place] % (Auto) Eos % (Auto) Baso % (Auto) Neut # (Auto) Lymph # (Auto) [place] # (Auto) Eos # (Auto) Baso # (Auto) Abs Immat Gran (auto) INR 4.10 H Turbidity < 20 Sodium 140 Potassium 4.1 Chloride 102 Carbon Dioxide 28 Anion Gap 10 BUN 67.0 H* Creatinine 2.5 H GFR Calculation 25 BUN/Creatinine Ratio 27 H Glucose 96 Calculated Osmolality 288 H Calcium 9.3 Phosphorus 3.0 Magnesium 2.0 Total Bilirubin Icterus Index < 2 AST ALT Alkaline Phosphatase Creatine Kinase Troponin I B-Natriuretic Peptide Total Protein Albumin 3.1 L Globulin Albumin/Globulin Ratio TSH 1.31 Specimen Hemolysis < 15 - Echocardiogram Echocardiogram: Echo: 02/12/2017 1. Severe global hypokinesia with ejection fraction of about 20%. 2. Pleural effusion present. 3. Biatrial dilation. 4. Left ventricular dilation. 5. Osgolztk-hj-kptuyr severe mitral regurgitation. 6. Moderate aortic insufficiency. 7. Llyj-gd-taacldky tricuspid regurgitation with moderate pulmonary hypertension with estimated pulmonary artery systolic pressure of 52. 8. Mild pulmonary insufficiency. Assessment and Plan (1) Congestive heart failure Problem details: Acute Current visit: Yes Status: Acute (2) Afib Problem details: With RVR Current visit: Yes Status: Chronic (3) Supratherapeutic INR Current visit: Yes Status: Acute (4) Chest pain Current visit: Yes Status: Acute Assessment and Plan: 1. Acute congestive heart failure -Cardiomegaly -On Bumex gtt -Cardiology consulted -EF 20% with mod to severe MR 2. Pulmonary edema -Diuresing 3. Afib -RVR -give one dose of digoxin -Start Coreg, low dose -On Coumadin-supratherapeutic INR, pharm managing 4. CP -H/O non obstructive CAD (?year) -Will likely need ischemic eval at some point 5. A/C renal failure -Chronic stage 4 -Stable at present. 6. HTN -Reasonable control. Will try adding on Lopressor 25mg BID for rate control and watch BPs. 7. Anemia -1gm drop overnight -check stools -Iron panel -start ppi 8. Supratherapuetic INR -trending down 9. COPD -Resp therapy 10. Poss [place] -Will need overnight oximetry once more stable 11. Prophylaxis -On coumadin, start ppi Hospital Course Summary Disclaimer: The visit summary below is not to be considered part of the above Progress Note. Hospital Course: 02/12/17 Patient is admitted to the intensive care unit with dyspnea, chest pain, and A. fib with RVR. Rate control was improved overnight with bolus doses of diltiazem. Given chest pain in association with CHF will initiate carvedilol. Cardiology consult-Dr. Joshi. Echocardiogram ordered. Serial troponins unremarkable today. Diuresis initiated overnight with Lasix, minimally effective and will dose Bumex now. Continue to monitor urine output and weights. Breathing treatments as needed. Home medications being updated; warfarin on hold due to elevated INR. Pharmacy consult to assist with warfarin management. After condition stabilizes will obtain nocturnal oximetry. Creatinine slightly above baseline-monitor closely with diuresis; patient is not routinely followed by a entertain[facility] but did see Dr. Nguyen in the past. DO NOT INTUBATE order written per patient request.
--- NOTE | 2017-02-13 08:37 | Pharmacy Consult ---
Pharmacy Consult-Warfarin - Laboratory Information 02/13/17 04:30 INR 4.10 H - Consult Information 81 y.o. M with history of a. fib and chronic anticoagulation with warfarin. Home warfarin dose: 5 mg po daily. goal INR = 2.0 to 3.0. INR supra-therapeutic on admission 02/11/17 at 4.10. date INR dose 02/11 5.81 no dose 02/12 4.10 plan: no dose INR= 4.10 and is supra-therapeutic today. Nursing reports no signs of bleeding. Will give no Warfarin today. Pharmacy will continue to monitor and adjust and needed. Thank you, Ciara Guerrero [facility]
[2017-02-13] MEDS ORDERED: DIGOXIN 500 MCG/2 ML INJECTION IVP ONE (08:44)
[2017-02-13] MEDS: SENNA + DOCUSATE TABLET PO SCH (12:34)
--- NOTE | 2017-02-13 16:34 | Cardiology Progress Note ---
<Alana Gibson - Last Filed: 02/13/17 16:29> Subjective Principal diagnosis: heart failure Exam Vital signs: Temperature 98.9 F 02/13/17 14:00 Pulse Rate 102 H 02/13/17 14:00 Respiratory Rate 24 02/13/17 14:00 Blood Pressure 110/63 02/13/17 14:00 Pulse Oximetry 96 02/13/17 14:00 - Constitutional no acute distress - Routine HEENT Exam Head: Present: normocephalic Eye: Present: EOMI ENT: Present: mucous membranes moist - Routine Neck Exam Absent: JVD - Routine Respiratory Exam Present: dyspnea, decreased breath sounds (RL) - Routine Cardiovascular Exam Present: tachycardia, irregular rhythm - Routine Abdominal Exam Present: soft - Routine Extremities Exam Present: edema (up to mid cordoba) - Routine Skin Exam Present: intact, warm - Routine Neurological Exam Present: alert, oriented X3 - Routine Psychiatric Exam Present: normal affect - Urinary Catheter Management Urethral Cath placed during this visit: yes Insertion date: 02/12/17 Insertion time: 02:30 Results 02/13/17 12:54 02/13/17 04:30 CBC 02/13/17 02/13/17 Range/Units 04:30 12:54 WBC 6.8 (4.5-11.0) T/MM3 RBC 2.75 L (4.50-5.90) M/MM3 Hgb 9.0 L D 9.1 L (13.5-17.5) GM/DL Hct 28.3 L D 29.1 L (41-53) % Plt Count 229 (130-400) T/MM3 Neut # (Auto) 4.3 (1.8-7.7) T/MM3 Lymph # (Auto) 1.2 (1-4.8) T/MM3 [place] # (Auto) 0.9 H (0-0.8) T/MM3 Eos # (Auto) 0.4 (0-0.5) T/MM3 Baso # (Auto) 0.0 (0-0.2) T/MM3 Comprehensive Metabolic Panel 02/13/17 Range/Units 04:30 Sodium 140 (134-144) MEQ/L Potassium 4.1 (3.6-5) MEQ/L Chloride 102 (98-107) MEQ/L Carbon Dioxide 28 (22-30) MEQ/L BUN 67.0 H* (9-20) MG/DL Creatinine 2.5 H (0.8-1.5) MG/DL Glucose 96 (75-110) MG/DL Calcium 9.3 (8.4-10.2) MG/DL Albumin 3.1 L (3.5-5.0) G/DL Intake and Output 02/13/17 02/13/17 02/13/17 06:59 14:59 22:59 Intake Total 370.400 / 370.400 324.627 / 324.627 480 / 480 Output Total 1994 / 1565 Balance -1624.600 / -1624.600 -1240.373 / -1240.373 480 / 480 Intake: IV 130.400 / 130.400 84.627 / 84.627 Bumetanide Drip 25 mg In 16.0 / 16.0 RTU-Saline 100 ml @ 2 mls /hr IV .Q24H [facility] Rx#: [id number] Milrinone Drip 20 mg In 114.400 / 114.400 68.627 / 68.627 100 ml @ 0.375 MCG/KG/MIN 10.418 mls/hr IV .Q9H36M [facility] Rx#:[id number] Oral 240 / 240 240 / 240 480 / 480 Output: Urine Amount (Catheter) 19945 / 1565 Other: Urine Appearance Clear Clear Urine Color Yellow Yellow Assessment and Plan - Assessment and Plan (1) Afib Problem details: With RVR Current visit: Yes Status: Chronic (2) Supratherapeutic INR Current visit: Yes Status: Acute (3) Chest pain Current visit: Yes Status: Acute (4) Acute systolic CHF (congestive heart failure) Current visit: Yes Status: Acute (5) Essential (primary) hypertension Current visit: Yes Status: Chronic Hospital Course Summary Disclaimer: The visit summary below is not to be considered part of the above Progress Note. Hospital Course: 02/12/17 Patient is admitted to the intensive care unit with dyspnea, chest pain, and A. fib with RVR. Rate control was improved overnight with bolus doses of diltiazem. Given chest pain in association with CHF will initiate carvedilol. Cardiology consult-Dr. Joshi. Echocardiogram ordered. Serial troponins unremarkable today. Diuresis initiated overnight with Lasix, minimally effective and will dose Bumex now. Continue to monitor urine output and weights. Breathing treatments as needed. Home medications being updated; warfarin on hold due to elevated INR. Pharmacy consult to assist with warfarin management. After condition stabilizes will obtain nocturnal oximetry. Creatinine slightly above baseline-monitor closely with diuresis; patient is not routinely followed by a clerical investigator but did see Dr. Nguyen in the past. DO NOT INTUBATE order written per patient request. 02/13/17 16:31 PLEASE DO NOT GIVE BETA BLOCKERS. Milrinone gtt decrease to 0.25mcg x4 hrs then stop. Cont bumex. Give dig 0.25mg IV x3 then stop. please call if hr is not goal of less than 110-120. Thank you. <Geovani Joshi - Last Filed: 02/16/17 07:44> Exam Vital signs: Temperature 98.1 F 02/16/17 03:32 Pulse Rate 83 02/16/17 03:32 Respiratory Rate 20 02/16/17 03:32 Blood Pressure 145/62 H 02/16/17 03:32 Pulse Oximetry 93 02/16/17 03:32 - Urinary Catheter Management Urethral Cath placed during this visit: no Results 02/16/17 03:56 02/16/17 03:56 CBC 02/16/17 Range/Units 03:56 WBC 8.2 (4.5-11.0) T/MM3 RBC 3.28 L (4.50-5.90) M/MM3 Hgb 10.7 L (13.5-17.5) GM/DL Hct 34.0 L (41-53) % Plt Count 305 (130-400) T/MM3 Neut # (Auto) 4.8 (1.8-7.7) T/MM3 Lymph # (Auto) 1.6 (1-4.8) T/MM3 [place] # (Auto) 1.3 H (0-0.8) T/MM3 Eos # (Auto) 0.4 (0-0.5) T/MM3 Baso # (Auto) 0.0 (0-0.2) T/MM3 Comprehensive Metabolic Panel 02/16/17 Range/Units 03:56 Sodium 142 (134-144) MEQ/L Potassium 4.5 (3.6-5) MEQ/L Chloride 98 (98-107) MEQ/L Carbon Dioxide 35 H (22-30) MEQ/L BUN 61.0 H* (9-20) MG/DL Creatinine 2.5 H (0.8-1.5) MG/DL Glucose 96 (75-110) MG/DL Calcium 10.0 (8.4-10.2) MG/DL Intake and Output 02/15/17 02/16/17 02/16/17 22:59 06:59 14:59 Intake Total 350 / 350 Output Total 210 / 210 1050 / 1050 Balance 140 / 140 -1050 / -1050 Intake: Oral 350 / 350 Output: Urine Amount (Catheter) 210 / 210 1050 / 1050 Other: Urine Appearance Clear Urine Color Pale Yellow Assessment and Plan - Assessment and Plan (1) Afib Problem details: With RVR Current visit: Yes Status: Chronic (2) Supratherapeutic INR Current visit: Yes Status: Acute (3) Chest pain Current visit: Yes Status: Acute (4) Acute systolic CHF (congestive heart failure) Current visit: Yes Status: Acute (5) Essential (primary) hypertension Current visit: Yes Status: Chronic - Attestation Attestation Narrative: 02/16/17 07:44 Recommendation After examining the patient I agree with the above assessment. I am involved in the formulation of the patient's plan of care. Hospital Course Summary Disclaimer: The visit summary below is not to be considered part of the above Progress Note.
[2017-02-13] MEDS: DIGOXIN 500 MCG/2 ML INJECTION IVP SCH ×2 (16:43→20:24)
[2017-02-13] MEDS ORDERED: MILRINONE DRIP 20 MG/100 ML BAG IV SCH (20:15)
[2017-02-14] MEDS: DIGOXIN 500 MCG/2 ML INJECTION IVP SCH (00:09)
[2017-02-14] MEDS ORDERED: MILRINONE DRIP 20 MG/100 ML BAG IV SCH (00:15)
[2017-02-14] MEDS: BUMETANIDE DRIP 25 MG in RTU-SALINE 100 ML IV SCH (00:21)
--- NOTE | 2017-02-14 07:35 | Progress Note ---
- Date 02/14/17 Subjective: Mr. Cuadra is an 81-year-old gentleman with known history of atrial fibrillation was experiencing increased dyspnea for partially one month with accompanying lower extremity edema. Lasix was initiated and the patient was taking multiple doses daily with dose up to 100 mg daily with minimal effect. He says primary care physician 2 days ago and was switched to Bumex 1 mg twice a day but dyspnea has persisted and worsened from exertional dyspnea with nocturnal orthopnea to dyspnea at rest. Patient reports he's had a nonproductive cough and has been sleeping in a chair the last 2 days. He denies PND. He denies palpitations but developed chest pain yesterday evening in the substernal region characterized as a hard pain without nausea, radiation, or diaphoresis. He's had a past cardiac catheterization by Dr. Castro and was told he did not require interventions. Mr. Cuadra presented to the emergency room due to worsening dyspnea and chest pain yesterday evening. EKG demonstrated lateral T- wave inversion possibly due to LVH and initial troponin was 0.074. Patient was in CCU for atrial fibrillation with rapid ventricular response and management of chest pain. Patient reports had a chest x-ray done in the office 2 days ago and was told it was unremarkable. An echo was performed showing: Severe global hypokinesia with ejection fraction of about 20%. Pleural effusion present. Biatrial dilation. Left ventricular dilation. [id number] severe mitral regurgitation. Moderate aortic insufficiency. [id number] tricuspid regurgitation with moderate pulmonary hypertension with estimated pulmonary artery systolic pressure of 52. Mild pulmonary insufficiency, PAP 52mmHg. Today, he is up on side of bed working with nursing to get back in bed. He did pretty well through the night. He is feeling better. He is on 1 liter oxygen now , was on 1-2 liter on and off yesterday. Milrinone off during the night. He still has mild CP, anterior chest but he reports it is much better than yesterday. It is worse with coughing. Still a bit SOA with activity. Still no BM. He is passing gas. His legs look better but he reports his "feet need some work" (they are still swollen). He has had them elevated at times. Cadet in place. BP have been up running 143-163/63-84. Pulses 99-108. Objective Vital signs: Temperature 98.4 F 02/13/17 16:00 Pulse Rate 102 H 02/14/17 06:00 Respiratory Rate 31 H 02/14/17 06:00 Blood Pressure 143/84 H 02/14/17 06:00 Pulse Oximetry 98 02/14/17 06:00 Rhythm: Atrial Fibrillation with RVR Height/Weight/BMI: Height 1.88 m Weight 92.6 kg Body Mass Index 24.5 Comments: Gen: alert and oriented. Pleasant. NAD. Skin: warm and dry HEENT: NC/AT PERRL, EOMI, Sclera, lids and conjunctiva wnl. MMM. OP clear. Neck: No JVD, Carotids 2+ no bruits. Lungs: few bibasilar crackles (improved from yesterday), diminished BS. CV: irregular. Tachy. 3/6 murmur. Abd: soft. +BS. NT/ND, Mid abdominal hernia noted MS: 1-2+ LE edema. Good strength, ROM Neuro: No focal deficit Results - Labs CBC & Chem 7: 02/14/17 03:58 02/14/17 03:58 Assessment and Plan (1) Congestive heart failure Problem details: Acute Current visit: Yes Status: Acute (2) Afib Problem details: With RVR Current visit: Yes Status: Chronic (3) Supratherapeutic INR Current visit: Yes Status: Acute (4) Chest pain Current visit: Yes Status: Acute Assessment and Plan: 1. Acute congestive heart failure -Cardiomegaly -On Bumex gtt -Cardiology consulted -EF 20% with mod to severe MR 2. Pulmonary edema -Diuresing 3. Afib -RVR -IV digoxin given -Pt would benefit from a beta-jay -would avoid ca ch bl due to low EF, swelling and constipation -On Coumadin-supratherapeutic INR, INR 2.97 today. pharm managing 4. CP -H/O non obstructive CAD (?year) -Will likely need ischemic eval at some point 5. A/C renal failure -Chronic stage 4 -Stable at present. Bun climbing 6. HTN -BP elevated. -Consider Coreg for BP and rate control 7. Anemia -Stable -check stools -Iron panel -start ppi 8. Supra-therapeutic INR -trending down, pharm managing 9. COPD -Resp therapy 10. Poss [place] -Will need overnight oximetry once more stable 11. Prophylaxis -On coumadin, start ppi Pt could probably move to tele bed but will defer to cardiology. Hospital Course Summary Disclaimer: The visit summary below is not to be considered part of the above Progress Note. Hospital Course: 02/12/17 Patient is admitted to the intensive care unit with dyspnea, chest pain, and A. fib with RVR. Rate control was improved overnight with bolus doses of diltiazem. Given chest pain in association with CHF will initiate carvedilol. Cardiology consult-Dr. Joshi. Echocardiogram ordered. Serial troponins unremarkable today. Diuresis initiated overnight with Lasix, minimally effective and will dose Bumex now. Continue to monitor urine output and weights. Breathing treatments as needed. Home medications being updated; warfarin on hold due to elevated INR. Pharmacy consult to assist with warfarin management. After condition stabilizes will obtain nocturnal oximetry. Creatinine slightly above baseline-monitor closely with diuresis; patient is not routinely followed by a seamless hosiery knitter but did see Dr. Nguyen in the past. DO NOT INTUBATE order written per patient request. 02/13/17 16:31 PLEASE DO NOT GIVE BETA BLOCKERS. Milrinone gtt decrease to 0.25mcg x4 hrs then stop. Cont bumex. Give dig 0.25mg IV x3 then stop. please call if hr is not goal of less than 110-120. Thank you.
[2017-02-14] MEDS: POLYETHYL GLYCOL 3350 17gm PACKET PO SCH (08:28)
[2017-02-14] MEDS: SENNA + DOCUSATE TABLET PO SCH (08:29)
--- NOTE | 2017-02-14 08:54 | Pharmacy Consult ---
Pharmacy Consult-Warfarin - Laboratory Information 02/13/17 02/14/17 04:30 03:58 INR 4.10 H 2.97 H - Consult Information 81 y.o. M with history of a. fib and chronic anticoagulation with warfarin. Home warfarin dose: 5 mg po daily. goal INR = 2.0 to 3.0. INR supra-therapeutic on admission 02/11/17 at 4.10. date INR dose 02/11 5.81 no dose 02/12 4.10 no dose 02/13 2.97 plan: 2 mg INR is back in therapeutic range today. Will give Warfarin 2 mg today. Pharmacy will continue to monitor and adjust and needed. Thank you, Ciara Guerrero [facility]
--- NOTE | 2017-02-14 10:10 | XRay Report ---
Indication: CHF PROCEDURE: XR chest 1V: Encounter: Initial Comparison: February 12, 2017 Findings: Pulmonary edema has improved with slight decrease in small bilateral pleural effusions. Lower lobe compressive atelectasis remains. No pneumothorax or new infiltrate. Heart size and mediastinal contours are stable. Impression: Improving congestive failure. .
--- NOTE | 2017-02-14 10:53 | Cardiology Progress Note ---
<Alana Gibson - Last Filed: 02/14/17 10:49> Subjective Principal diagnosis: heart failure Exam Vital signs: Temperature 98.4 F 02/13/17 16:00 Pulse Rate 127 H 02/14/17 08:00 Respiratory Rate 31 H 02/14/17 06:00 Blood Pressure 143/84 H 02/14/17 06:00 Pulse Oximetry 98 02/14/17 06:00 - Constitutional no acute distress - Routine HEENT Exam Head: Present: atraumatic Eye: Present: EOMI ENT: Present: mucous membranes moist - Routine Neck Exam Absent: JVD - Routine Respiratory Exam Present: decreased breath sounds (in bases although clear. ). Absent: accessory muscle use, wheezes, crackles - Routine Cardiovascular Exam Present: tachycardia, irregular rhythm - Routine Abdominal Exam Present: soft, normoactive bowel sounds - Routine Extremities Exam Present: edema (significant up to mid cordoba) - Routine Back/Spine/Pelvis Exam Back/Spine: Absent: CVA tenderness, paraspinal tenderness - Routine Skin Exam Present: intact, dry, warm - Routine Neurological Exam Present: alert, oriented X3 - Routine Psychiatric Exam Present: normal affect - Urinary Catheter Management Urethral Cath placed during this visit: yes Insertion date: 02/12/17 Insertion time: 02:30 Results 02/14/17 03:58 02/14/17 03:58 CBC 02/13/17 02/14/17 Range/Units 12:54 03:58 WBC 7.4 (4.5-11.0) T/MM3 RBC 3.10 L (4.50-5.90) M/MM3 Hgb 9.1 L 10.0 L (13.5-17.5) GM/DL Hct 29.1 L 32.0 L (41-53) % Plt Count 257 (130-400) T/MM3 Neut # (Auto) 4.5 (1.8-7.7) T/MM3 Lymph # (Auto) 1.4 (1-4.8) T/MM3 [place] # (Auto) 1.1 H (0-0.8) T/MM3 Eos # (Auto) 0.4 (0-0.5) T/MM3 Baso # (Auto) 0.0 (0-0.2) T/MM3 Comprehensive Metabolic Panel 02/14/17 Range/Units 03:58 Sodium 141 (134-144) MEQ/L Potassium 4.2 (3.6-5) MEQ/L Chloride 99 (98-107) MEQ/L Carbon Dioxide 32 H (22-30) MEQ/L BUN 73.0 H* (9-20) MG/DL Creatinine 2.5 H (0.8-1.5) MG/DL Glucose 94 (75-110) MG/DL Calcium 9.6 (8.4-10.2) MG/DL Intake and Output 02/13/17 02/14/17 02/14/17 22:59 06:59 14:59 Intake Total 801.9 / 801.9 16.0 / 16.0 6 / Output Total 2074 2740 / 2740 875 / 875 Balance -1273.1 / -1273.1 -2724.0 / -2724.0 -869 / -869 Intake: IV 81.9 / 81.9 16.0 / 16.0 Bumetanide Drip 25 mg In 16.0 / 16.0 RTU-Saline 100 ml @ 2 mls /hr IV .Q24H [facility] Rx#: [id number] Milrinone Drip 20 mg In 65.9 / 65.9 100 ml @ As Directed IV . Q9H36M [facility] Rx#:[id number] Oral 720 / 720 Output: Urine Amount (Catheter) 2074 2740 / 2740 875 / 875 Other: Urine Appearance Clear Clear Clear Urine Color Yellow Yellow Yellow Urine Odor Normal Weight 85.3 kg Patient Weight 02/15/17 06:59 Weight 85.3 kg - EKG Interpretation EKG: no acute changes EKG shows: tachycardia (afib rvr 110), atrial fibrillation Assessment and Plan - Assessment and Plan (1) Afib Problem details: With RVR Current visit: Yes Status: Chronic (2) Supratherapeutic INR Current visit: Yes Status: Acute (3) Chest pain Current visit: Yes Status: Acute (4) Acute systolic CHF (congestive heart failure) Current visit: Yes Status: Acute (5) Essential (primary) hypertension Current visit: Yes Status: Chronic Hospital Course Summary Disclaimer: The visit summary below is not to be considered part of the above Progress Note. Hospital Course: 02/12/17 Patient is admitted to the intensive care unit with dyspnea, chest pain, and A. fib with RVR. Rate control was improved overnight with bolus doses of diltiazem. Given chest pain in association with CHF will initiate carvedilol. Cardiology consult-Dr. Joshi. Echocardiogram ordered. Serial troponins unremarkable today. Diuresis initiated overnight with Lasix, minimally effective and will dose Bumex now. Continue to monitor urine output and weights. Breathing treatments as needed. Home medications being updated; warfarin on hold due to elevated INR. Pharmacy consult to assist with warfarin management. After condition stabilizes will obtain nocturnal oximetry. Creatinine slightly above baseline-monitor closely with diuresis; patient is not routinely followed by a account resolution expert but did see Dr. Nguyen in the past. DO NOT INTUBATE order written per patient request. 02/13/17 16:31 PLEASE DO NOT GIVE BETA BLOCKERS. Milrinone gtt decrease to 0.25mcg x4 hrs then stop. Cont bumex. Give dig 0.25mg IV x3 then stop. please call if hr is not goal of less than 110-120. Thank you. 02/14/17 10:53 Fluid balance -1999. cable ferry operator stable 2.5. BUN up 76. Afib 100-120. SBP 140-180's. Stop bumex gtt and start bumex 2mg IV q6hrs. Start Cardizem CD 240mg po daily first dose now. Please apply ADOLFO hose and encourage elevation of lower extremities. OK to transfer to floor from cardiology standpoint if ok with attending. Please call if pressure and rate not controlled. Thank you. <Geovani Joshi - Last Filed: 02/16/17 07:45> Exam Vital signs: Temperature 98.1 F 02/16/17 03:32 Pulse Rate 83 02/16/17 03:32 Respiratory Rate 20 02/16/17 03:32 Blood Pressure 145/62 H 02/16/17 03:32 Pulse Oximetry 93 02/16/17 03:32 - Urinary Catheter Management Urethral Cath placed during this visit: no Results 02/16/17 03:56 02/16/17 03:56 CBC 02/16/17 Range/Units 03:56 WBC 8.2 (4.5-11.0) T/MM3 RBC 3.28 L (4.50-5.90) M/MM3 Hgb 10.7 L (13.5-17.5) GM/DL Hct 34.0 L (41-53) % Plt Count 305 (130-400) T/MM3 Neut # (Auto) 4.8 (1.8-7.7) T/MM3 Lymph # (Auto) 1.6 (1-4.8) T/MM3 [place] # (Auto) 1.3 H (0-0.8) T/MM3 Eos # (Auto) 0.4 (0-0.5) T/MM3 Baso # (Auto) 0.0 (0-0.2) T/MM3 Comprehensive Metabolic Panel 02/16/17 Range/Units 03:56 Sodium 142 (134-144) MEQ/L Potassium 4.5 (3.6-5) MEQ/L Chloride 98 (98-107) MEQ/L Carbon Dioxide 35 H (22-30) MEQ/L BUN 61.0 H* (9-20) MG/DL Creatinine 2.5 H (0.8-1.5) MG/DL Glucose 96 (75-110) MG/DL Calcium 10.0 (8.4-10.2) MG/DL Intake and Output 02/15/17 02/16/17 02/16/17 22:59 06:59 14:59 Intake Total 350 / 350 Output Total 210 / 210 1050 / 1050 Balance 140 / 140 -1050 / -1050 Intake: Oral 350 / 350 Output: Urine Amount (Catheter) 210 / 210 1050 / 1050 Other: Urine Appearance Clear Urine Color Pale Yellow Assessment and Plan - Assessment and Plan (1) Afib Problem details: With RVR Current visit: Yes Status: Chronic (2) Supratherapeutic INR Current visit: Yes Status: Acute (3) Chest pain Current visit: Yes Status: Acute (4) Acute systolic CHF (congestive heart failure) Current visit: Yes Status: Acute (5) Essential (primary) hypertension Current visit: Yes Status: Chronic Hospital Course Summary Disclaimer: The visit summary below is not to be considered part of the above Progress Note.
[2017-02-14] MEDS: BUMETANIDE 2.5mg/10ml INJECTION IVP SCH ×2 (11:52→19:28)
[2017-02-14] MEDS ORDERED: WARFARIN 2 MG TABLET PO SCH (12:00)
[2017-02-14] MEDS: SALINE FLUSH 10ml SYRINGE IV PRN (19:29)
[2017-02-15] MEDS: BUMETANIDE 2.5mg/10ml INJECTION IVP SCH ×4 (00:14→18:17)
[2017-02-15] MEDS: SALINE FLUSH 10ml SYRINGE IV PRN ×2 (00:15→06:05)
[2017-02-15] MEDS: SENNA + DOCUSATE TABLET PO SCH (07:59)
[2017-02-15] MEDS: POLYETHYL GLYCOL 3350 17gm PACKET PO SCH (08:00)
--- NOTE | 2017-02-15 08:34 | Pharmacy Consult ---
Pharmacy Consult-Warfarin - Laboratory Information 02/13/17 02/14/17 02/15/17 04:30 03:58 04:42 INR 4.10 H 2.97 H 2.23 H - Consult Information 81 y.o. M with history of a. fib and chronic anticoagulation with warfarin. Home warfarin dose: 5 mg po daily. goal INR = 2.0 to 3.0. INR supra-therapeutic on admission 02/11/17 at 4.10. date INR dose 02/12 5.81 no dose 02/13 4.10 no dose 02/14 2.97 2 mg 02/15 2.23 plan: 4 mg INR is therapeutic. Will give Warfarin 4 mg today. Pharmacy will continue to monitor and adjust and needed. Thank you, Ciara Guerrero [facility]
--- NOTE | 2017-02-15 11:12 | Cardiology Progress Note ---
<Queenie Murdock - Last Filed: 02/17/17 12:49> Subjective Principal diagnosis: heart failure Interval history: Corona is seen in follow up for acute systolic heart failure, A Fib with RVR and chest pain. He is sitting up in the recliner in CCU. He denies chest pain or dyspnea but states he doesn't feel very good today. Discussed with him at length the need for further evaluation of his coronaries with heart cath later this week. Exam Vital signs: Temperature 98.8 F 02/15/17 08:00 Pulse Rate 92 02/15/17 08:49 Respiratory Rate 29 H 02/15/17 08:00 Blood Pressure 149/63 H 02/15/17 08:00 Pulse Oximetry 96 02/15/17 08:00 - Constitutional no acute distress, well nourished, cooperative - Routine HEENT Exam Head: Present: normocephalic ENT: Present: mucous membranes moist - Routine Neck Exam Absent: JVD, carotid bruit - Routine Chest/Breast/Axilla Exam Chest wall: Absent: tenderness - Routine Respiratory Exam Present: decreased breath sounds. Absent: CTA bilaterally, rales, wheezes - Routine Cardiovascular Exam Present: murmur (III/), tachycardia, irregular rhythm. Absent: JVD - Routine Abdominal Exam Present: soft, normoactive bowel sounds - Routine Extremities Exam Present: edema (2+ bilat.) - Routine Skin Exam Present: intact, dry, warm - Routine Neurological Exam Present: alert, oriented X3 - Routine Psychiatric Exam Present: normal affect, normal thought process - Additional findings Additional findings: Albuterol/Ipratropium (Duoneb) 3 ml AEROSOL QID PRN PRN Reason: Shortness of air/wheezing Bumetanide (Bumex Inj) 2 mg IVP [id number] [facility] Last Admin: 02/15/17 06:05 Dose: 2 mg Carvedilol (Coreg) 6.25 mg PO BIDWM [facility] Diltiazem HCl (Cardizem Cd) 240 mg PO DAILY [facility] Last Admin: 02/15/17 07:59 Dose: 240 mg Magnesium Hydroxide (Mom) 30 ml PO DAILY PRN PRN Reason: Constipation /Stool softening Polyethylene Glycol (Miralax) 17 gm PO DAILY [facility] Last Admin: 02/15/17 08:00 Dose: 17 gm Potassium Chloride (K-Dur) 20 meq PO BIDWM [facility] Last Admin: 02/15/17 07:57 Dose: 20 meq Senna/Docusate Sodium (Senna Plus Tablet) 2 tab PO DAILY [facility] Last Admin: 02/15/17 07:59 Dose: 2 tab Sodium Chloride (Iv Flush) 10 ml IV PRN PRN PRN Reason: Flushing Last Admin: 02/15/17 06:05 Dose: 10 ml Warfarin Sodium (Coumadin Protocol) 0 [facility] NOTE [facility] Warfarin Sodium (Coumadin) 4 mg PO O ONE Stop: 02/15/17 12:01 - Urinary Catheter Management Urethral Cath placed during this visit: yes Insertion date: 02/12/17 Insertion time: 02:30 Results 02/17/17 04:19 02/17/17 04:19 Comprehensive Metabolic Panel 02/15/17 Range/Units 04:42 Sodium 143 (134-144) MEQ/L Potassium 4.3 (3.6-5) MEQ/L Chloride 97 L (98-107) MEQ/L Carbon Dioxide 36 H (22-30) MEQ/L BUN 64.0 H* (9-20) MG/DL Creatinine 2.4 H (0.8-1.5) MG/DL Glucose 96 (75-110) MG/DL Calcium 10.0 (8.4-10.2) MG/DL Intake and Output 02/14/17 02/15/17 02/15/17 22:59 06:59 14:59 Intake Total 720 / 720 350 / 350 Output Total 1525 / 1525 1595 / 1595 940 / 940 Balance -805 / -805 -1595 / -1595 -590 / -590 Intake: Oral 720 / 720 350 / 350 Output: Urine Amount (Catheter) 1525 / 1525 1595 / 1595 940 / 940 Other: Urine Appearance Clear Clear Clear Urine Color Yellow Pale Pale Yellow Yellow Size of Bowel Movement Large Weight 192 lb 0.362 oz Patient Weight 02/16/17 06:59 Weight 192 lb 0.362 oz Laboratory Results - last 24 hr 02/13/17 02/13/17 02/15/17 04:30 04:30 04:42 INR 2.23 H Turbidity Sodium Potassium Chloride Carbon Dioxide Anion Gap BUN Creatinine GFR Calculation BUN/Creatinine Ratio Glucose Calculated Osmolality Calcium Iron 41 L TIBC 327 % Saturation 13 Icterus Index Vitamin B12 763 Specimen Hemolysis 02/15/17 04:42 INR Turbidity < 20 Sodium 143 Potassium 4.3 Chloride 97 L Carbon Dioxide 36 H Anion Gap 10 BUN 64.0 H* Creatinine 2.4 H GFR Calculation 26 BUN/Creatinine Ratio 27 H Glucose 96 Calculated Osmolality 293 H Calcium 10.0 Iron TIBC % Saturation Icterus Index < 2 Vitamin B12 Specimen Hemolysis < 15 - Imaging and Cardiology Echo: report reviewed EKG results: image reviewed Imaging & Cardiology Narrative: Date of Exam: 02/12/17 Type of Exam(s): US echo doppler complete DATE OF PROCEDURE February 12, 2017 This is a two-dimensional echo with spectral Doppler, color-flow and M-mode. It was obtained in a patient with congestive heart failure. Left atrium is dilated. Left ventricular end-diastolic dimension is increased. Left ventricular wall thickness is normal. Severe global hypokinesia is present with ejection fraction of about 20%. Right atrium is dilated. Right ventricle is normal. Aortic root dimension is normal. Mitral valve shows ohtuhahj-[id number] mitral regurgitation. Aortic valve is a trileaflet structure with moderate aortic insufficiency. Tricuspid valve shows mild-to- moderate tricuspid regurgitation with moderate pulmonary hypertension with estimated pulmonary artery systolic pressure of 52. Pulmonary valve shows mild pulmonary insufficiency. There is no pericardial effusion. Pleural effusion is present. IMPRESSION 1. Severe global hypokinesia with ejection fraction of about 20%. 2. Pleural effusion present. 3. Biatrial dilation. 4. Left ventricular dilation. 5. Itodsysv-zh-[id number] severe mitral regurgitation. 6. Moderate aortic insufficiency. 7. Thkm-[id number] tricuspid regurgitation with moderate pulmonary hypertension with estimated pulmonary artery systolic pressure of 52. 8. Mild pulmonary insufficiency. 02/15/17 11:14 Assessment and Plan - Assessment and Plan (1) Acute systolic CHF (congestive heart failure) Status: Acute (2) Chest pain Status: Acute (3) Supratherapeutic INR Status: Acute (4) Afib Problem details: With RVR Status: Chronic 02/12/17 Acute systolic heart failure: EF 20% on Echo - Milrinone 0.375mcg/kg/min drip, hold Coreg - Bumex 2mg IV push and then Bumex 0.5mg /hr drip - Potassium 20meq BID for replacement - Strict I&O, restrict fluids to 2L/day - Monitor renal and electrolytes Chronic paroxysmal atrial fibrillation - anticoagulated on warfarin - suboptimal rate control, should improve with diuresis - Continue to monitor cardiac telemetry, may need to add Digoxin for rate control. Chest pain: Denies chest pain at this time - Trend serial troponin levels - EKG prn chest pain Thank you for allowing us to participate in the care of this patient. (5) Essential (primary) hypertension Status: Chronic - Assessment and Plan 02/12/17 Acute systolic heart failure: EF 20% on Echo - Milrinone 0.375mcg/kg/min drip, hold Coreg - Bumex 2mg IV push and then Bumex 0.5mg /hr drip - Potassium 20meq BID for replacement - Strict I&O, restrict fluids to 2L/day - Monitor renal and electrolytes Chronic paroxysmal atrial fibrillation - anticoagulated on warfarin - suboptimal rate control, should improve with diuresis - Continue to monitor cardiac telemetry, may need to add Digoxin for rate control. Chest pain: Denies chest pain at this time - Trend serial troponin levels - EKG prn chest pain Thank you for allowing us to participate in the care of this patient. 02/15/17 - Stop Cardizem - Start Coreg 6.25mg BID - Hold Coumadin today - NPO except for meds after midnight - Plan heart cath tomorrow, either at 0800 or later in the afternoon if INR is improved. - Follow up with Dr. Joshi on 03/16/17 at 1410 Hospital Course Summary Disclaimer: The visit summary below is not to be considered part of the above Progress Note. Hospital Course: 02/12/17 Patient is admitted to the intensive care unit with dyspnea, chest pain, and A. fib with RVR. Rate control was improved overnight with bolus doses of diltiazem. Given chest pain in association with CHF will initiate carvedilol. Cardiology consult-Dr. Joshi. Echocardiogram ordered. Serial troponins unremarkable today. Diuresis initiated overnight with Lasix, minimally effective and will dose Bumex now. Continue to monitor urine output and weights. Breathing treatments as needed. Home medications being updated; warfarin on hold due to elevated INR. Pharmacy consult to assist with warfarin management. After condition stabilizes will obtain nocturnal oximetry. Creatinine slightly above baseline-monitor closely with diuresis; patient is not routinely followed by a facialist but did see Dr. Nguyen in the past. DO NOT INTUBATE order written per patient request. 02/13/17 16:31 PLEASE DO NOT GIVE BETA BLOCKERS. Milrinone gtt decrease to 0.25mcg x4 hrs then stop. Cont bumex. Give dig 0.25mg IV x3 then stop. please call if hr is not goal of less than 110-120. Thank you. <Geovani Joshi - Last Filed: 02/22/17 16:03> Exam Vital signs: Temperature 97.4 F 02/17/17 11:59 Pulse Rate 99 02/17/17 11:59 Respiratory Rate 18 02/17/17 11:59 Blood Pressure 95/63 02/17/17 11:59 Pulse Oximetry 98 02/17/17 11:59 - Urinary Catheter Management Urethral Cath placed during this visit: no Results 02/17/17 04:19 02/17/17 04:19 Assessment and Plan - Assessment and Plan (1) Afib Problem details: With RVR Status: Chronic (2) Supratherapeutic INR Status: Acute (3) Chest pain Status: Acute (4) Acute systolic CHF (congestive heart failure) Status: Acute (5) Essential (primary) hypertension Status: Chronic - Attestation Attestation Narrative: 02/22/17 16:03 Recommendation After examining the patient I agree with the above assessment. I am involved in the formulation of the patient's plan of care. Hospital Course Summary Disclaimer: The visit summary below is not to be considered part of the above Progress Note.
[2017-02-15] MEDS: CARVEDILOL 6.25 MG TABLET PO SCH ×2 (11:48→18:18)
[2017-02-15] MEDS ORDERED: WARFARIN 4 MG TABLET PO ONE (12:00)
--- NOTE | 2017-02-15 14:54 | Progress Note ---
- Date 02/15/17 Subjective: F/U: Acute systolic heart failure Doing well overall. Breathing feels well-not congested, SOA, or having cough. No chest pain/pressure or pain with breathing. Eating well. No nausea or ab pain. Had good stool this am. Strength fair. No f/c. Objective Vital signs: Temperature 98.6 F 02/15/17 11:49 Pulse Rate 85 02/15/17 12:04 Respiratory Rate 34 H 02/15/17 11:00 Blood Pressure 122/57 02/15/17 11:00 Pulse Oximetry 95 02/15/17 11:00 Rhythm: Atrial Fibrillation with RVR Height/Weight/BMI: Height 1.88 m Weight 87.1 kg Body Mass Index 24.5 - Constitutional Present: well nourished, well developed, average body habitus, cooperative - Routine HEENT Exam Head: Present: normocephalic, atraumatic Eye: Present: EOMI, PERRL ENT: Present: mucous membranes moist - Routine Respiratory Exam Present: decreased breath sounds. Absent: prolonged expiratory phase, respiratory distress, rhonchi, wheezes, crackles - Routine Cardiovascular Exam Present: irregular rhythm, irregularly irregular - Routine Abdominal Exam Present: soft, normoactive bowel sounds, non distended, non tender - Routine Extremities Exam Present: edema (Trace LE edema ). Absent: cyanosis, clubbing - Routine Musculoskeletal Exam Musculoskeletal: Present: no clubbing or cyanosis, normal strength - Routine Skin Exam Present: dry, warm - Routine Neurological Exam Present: alert, oriented X3, CN II-XII intact, moving all extremities, vision grossly intact, hearing grossly intact, normal speech. Absent: motor deficit, altered mental status - Routine Psychiatric Exam Present: normal affect, normal thought process, cooperative Results - Labs CBC & Chem 7: 02/14/17 03:58 02/15/17 04:42 Assessment and Plan (1) Congestive heart failure Problem details: Acute Current visit: Yes Status: Acute (2) Afib Problem details: With RVR Current visit: Yes Status: Chronic (3) Supratherapeutic INR Current visit: Yes Status: Acute (4) Chest pain Current visit: Yes Status: Acute Assessment and Plan: Assessment Acute systolic congestive heart failure Pulmonary edema Atrial fibrillation with RVR Chest pain Acute on chronic renal failure-stage IV Obstructive sleep apnea-possible Hypertension Macrocytic anemia Lumbar spinal stenosis COPD Abdominal hernia DJD Coagulopathy due to warfarin Plan Will transfer to surgical floor for continuation of care-intensive needs resolved. Cardiology stopped diltiazem and started Coreg Initial Bladder retraining. PT/OT to eval and treat his cardiopulmonary debility. Recheck BMP and MG in am due to IV diuretics and CKD. Repeat CBC in am due to anemia and Coumadin use. Case discussed with CCU nursing. Time spent with patient care 25 minutes. DVT Prophylaxis: Coumadin Resuscitation Status: Do Not Intubate Hospital Course Summary Disclaimer: The visit summary below is not to be considered part of the above Progress Note. Hospital Course: 02/12/17 Patient is admitted to the intensive care unit with dyspnea, chest pain, and A. fib with RVR. Rate control was improved overnight with bolus doses of diltiazem. Given chest pain in association with CHF will initiate carvedilol. Cardiology consult-Dr. Joshi. Echocardiogram ordered. Serial troponins unremarkable today. Diuresis initiated overnight with Lasix, minimally effective and will dose Bumex now. Continue to monitor urine output and weights. Breathing treatments as needed. Home medications being updated; warfarin on hold due to elevated INR. Pharmacy consult to assist with warfarin management. After condition stabilizes will obtain nocturnal oximetry. Creatinine slightly above baseline-monitor closely with diuresis; patient is not routinely followed by a oil dipper but did see Dr. Nguyen in the past. DO NOT INTUBATE order written per patient request. 02/12/17 - Cardiology EF 20% on Echo - Milrinone 0.375mcg/kg/min drip, hold Coreg - Bumex 2mg IV push and then Bumex 0.5mg /hr drip - Potassium 20meq BID for replacement - Strict I&O, restrict fluids to 2L/day - Monitor renal and electrolytes Chest pain -Denies chest pain at this time - Trend serial troponin levels - EKG prn chest pain Afib - Chronic paroxysmal atrial fibrillation - anticoagulated on warfarin - suboptimal rate control, should improve with diuresis - Continue to monitor cardiac telemetry, may need to add Digoxin for rate control Essential (primary) hypertension Hold home BP meds for now while on Milrinone drip. 02/13/17 - Cardiology PLEASE DO NOT GIVE BETA BLOCKERS. Milrinone gtt decrease to 0.25mcg x4 hrs then stop. Cont bumex. Give dig 0.25mg IV x3 then stop. please call if hr is not goal of less than 110-120. Thank you. 02/14/17 Cardiology Fluid balance -1999. survey statistician stable 2.5. BUN up 76. Afib 100-120. SBP 140-180's. Stop bumex gtt and start bumex 2mg IV q6hrs. Start Cardizem CD 240mg po daily first dose now. Please apply ADOLFO hose and encourage elevation of lower extremities. OK to transfer to floor from cardiology standpoint if ok with attending. Please call if pressure and rate not controlled. Thank you. 02/15/17 Will transfer to surgical floor for continuation of care-intensive needs resolved. Cardiology: - Stop Cardizem - Start Coreg 6.25mg BID - Hold Coumadin today - NPO except for meds after midnight - Plan heart cath tomorrow, either at 0800 or later in the afternoon if INR is improved. Initial Bladder retraining. PT/OT to eval and treat his cardiopulmonary debility. Recheck BMP and MG in am due to IV diuretics and CKD. Repeat CBC in am due to anemia and Coumadin use.
[2017-02-15] MEDS ORDERED: NITROGLYCERIN 0.4 MG SUBLINGUAL TABLET SL PRN (16:10)
[2017-02-15] MEDS: HYDRALAZINE 10 MG TABLET PO SCH (18:18)
[2017-02-16] MEDS: BUMETANIDE 2.5mg/10ml INJECTION IVP SCH ×2 (01:38→06:14)
[2017-02-16] MEDS: CARVEDILOL 6.25 MG TABLET PO SCH ×2 (07:34→18:01)
[2017-02-16] MEDS: HYDRALAZINE 10 MG TABLET PO SCH ×3 (07:34→18:01)
[2017-02-16] MEDS ORDERED: LIDOCAINE 1% (10mg/ml) 30ml SDV INJ ONE (08:08)
[2017-02-16] MEDS ORDERED: FentaNYL 100 MCG/2 ML INJECTION ONE (08:14)
[2017-02-16] MEDS ORDERED: Verapamil 5 MG/2 ML VIAL ONE (08:14)
[2017-02-16] MEDS ORDERED: MIDAZOLAM 2mg/2ml INJECTION ONE (08:14)
[2017-02-16] MEDS ORDERED: NITROGLYCERIN 50MG INJECTION IV ONE (08:15)
[2017-02-16] MEDS ORDERED: HEPARIN 1,000unit/ml INJECTION 10ml ONE (08:15)
[2017-02-16] MEDS ORDERED: SALINE FLUSH 10ml SYRINGE ONE (08:15)
[2017-02-16] MEDS ORDERED: NS 1,000 ML IV SCH (08:15)
[2017-02-16] MEDS ORDERED: NS 1,000 ML ONE (08:23)
[2017-02-16] MEDS ORDERED: Bisacodyl EC TAB 5 MG TABLET PO PRN (09:06)
[2017-02-16] MEDS ORDERED: BUMETANIDE 1 MG TABLET PO SCH (09:06)
[2017-02-16] MEDS ORDERED: MAG-AL + SIM ORAL LIQUID 30ml PO PRN (09:06)
[2017-02-16] MEDS ORDERED: METOCLOPRAMIDE 10mg/2ml INJECTION IVP PRN (09:06)
[2017-02-16] MEDS ORDERED: PROMETHAZINE 25 MG INJECTION IVP PRN (09:06)
[2017-02-16] MEDS ORDERED: BISACODYL 10 MG SUPPOSITORY RECTALLY PRN (09:06)
[2017-02-16] MEDS ORDERED: NITROGLYCERIN 0.4 MG SUBLINGUAL TABLET SL PRN (09:06)
[2017-02-16] MEDS ORDERED: LORazepam 0.5 MG TABLET PO PRN (09:06)
[2017-02-16] MEDS ORDERED: ATROPINE 1 MG/ML INJECTION IVP PRN (09:06)
[2017-02-16] MEDS ORDERED: ONDANSETRON 4 MG/2 ML INJECTION IVP PRN (09:06)
[2017-02-16] MEDS ORDERED: HYDROCODONE/APAP 5mg/325mg TABLET PO PRN (09:06)
[2017-02-16] MEDS ORDERED: MORPHINE SULFATE 4mg INJECTION IVP PRN ×2 (09:06)
[2017-02-16] MEDS ORDERED: ACETAMINOPHEN 325 MG TABLET PO PRN (09:06)
--- NOTE | 2017-02-16 10:06 | Cardiac Catheterization Report ---
DATE OF PROCEDURE February 16, 2017 The patient is a pleasant 81-year-old gentleman who was admitted with congestive heart failure and was found to have cardiomyopathy with severe LV dysfunction and has been having chest pain and was referred for further evaluation by cardiac catheterization and possible intervention. Informed consent was obtained after explaining the procedure and the potential risks to the patient including the risk of renal failure and dialysis and the patient agreed to proceed with the procedure. PROCEDURE 1. Left heart catheterization. 2. Coronary angiography. TECHNIQUE He was prepped and draped in the usual sterile techniques. Conscious sedation was performed using Versed and fentanyl. 1% lidocaine was used for local anesthesia. Using modified Seldinger technique, arterial access was obtained into the right radial artery with placement of a 6-[place] arterial sheath. 3000 units of heparin, 300 mcg of nitroglycerin, and 2.5 mg of verapamil were given were given through the arterial sheath. CORONARY ANGIOGRAPHY Left main was free of significant lesions. Left anterior descending artery had diffuse irregularities and disease of up to about 30% with no hemodynamically significant lesions in LAD. Diagonals were small with no significant lesions. Left circumflex artery again had minor irregularities with no stenosis greater than 30%. Right coronary artery had diffuse disease of up to about 30%. The patient tolerated the procedure well with no complications. IMPRESSION 1. Mild coronary artery disease as described above. PLAN Medical management. MIRIAM
[2017-02-16] MEDS: SENNA + DOCUSATE TABLET PO SCH (13:11)
[2017-02-16] MEDS: POLYETHYL GLYCOL 3350 17gm PACKET PO SCH (13:12)
--- NOTE | 2017-02-16 16:12 | Progress Note ---
- Date 02/16/17 Subjective: F/U: Acute systolic heart failure, COPD, Stage 4 CKD Doing well today. Tolerated cath well. Breathing stable-not feeling SOA and congestion. No chest pain. Eating well. Feeling fullness of balder with bladder retraining. Objective Vital signs: Temperature 98.4 F 02/16/17 09:29 Pulse Rate 100 02/16/17 14:01 Respiratory Rate 28 H 02/16/17 14:01 Blood Pressure 149/91 H 02/16/17 14:01 Pulse Oximetry 97 02/16/17 14:01 Rhythm: Atrial Fibrillation with RVR Height/Weight/BMI: Height 1.88 m Weight 88.1 kg Body Mass Index 24.5 - Constitutional Present: well nourished, well developed, cooperative - Routine HEENT Exam Head: Present: normocephalic, atraumatic Eye: Present: EOMI, PERRL ENT: Present: mucous membranes moist - Routine Respiratory Exam Present: decreased breath sounds, distant breath sounds, diminished air movement. Absent: rales, respiratory distress, rhonchi, wheezes - Routine Cardiovascular Exam Present: irregular rhythm, irregularly irregular - Routine Abdominal Exam Present: soft, normoactive bowel sounds, non distended, non tender - Routine Extremities Exam Present: pulses intact. Absent: cyanosis, clubbing - Routine Musculoskeletal Exam Musculoskeletal: Present: no clubbing or cyanosis, normal strength - Routine Skin Exam Present: dry, warm - Routine Neurological Exam Present: alert, oriented X3, CN II-XII intact, moving all extremities, vision grossly intact, hearing grossly intact, normal speech. Absent: motor deficit, altered mental status - Routine Psychiatric Exam Present: normal affect, normal thought process, cooperative, good insight, good judgment Results - Labs CBC & Chem 7: 02/16/17 03:56 02/16/17 03:56 Assessment and Plan (1) Congestive heart failure Problem details: Acute Current visit: Yes Status: Acute (2) Afib Problem details: With RVR Current visit: Yes Status: Chronic (3) Supratherapeutic INR Current visit: Yes Status: Acute (4) Chest pain Current visit: Yes Status: Acute Assessment and Plan: Assessment Acute systolic congestive heart failure Pulmonary edema Atrial fibrillation with RVR Chest pain Stage IV CKD Obstructive sleep apnea-possible Hypertension Macrocytic anemia Lumbar spinal stenosis COPD Abdominal hernia DJD Coagulopathy due to warfarin Plan Cath showed 30% lesions. Medical management recommended. IVF started to help flush out cath dye - minimal dye use. Will change Bumex to 2mg BID (0900 and 1400) starting this evening. Decrease potassium to 20mEq with breakfast secondary to decreased diuretics. Will d/c Cadet. PT/OT to assess functional status. Recheck BMP in am due to IV dye use and CKD. Case discussed with nursing. Time spent with patient care 25 minutes. DVT Prophylaxis: Coumadin Resuscitation Status: Do Not Intubate Hospital Course Summary Disclaimer: The visit summary below is not to be considered part of the above Progress Note. Hospital Course: 02/12/17 Patient is admitted to the intensive care unit with dyspnea, chest pain, and A. fib with RVR. Rate control was improved overnight with bolus doses of diltiazem. Given chest pain in association with CHF will initiate carvedilol. Cardiology consult-Dr. Joshi. Echocardiogram ordered. Serial troponins unremarkable today. Diuresis initiated overnight with Lasix, minimally effective and will dose Bumex now. Continue to monitor urine output and weights. Breathing treatments as needed. Home medications being updated; warfarin on hold due to elevated INR. Pharmacy consult to assist with warfarin management. After condition stabilizes will obtain nocturnal oximetry. Creatinine slightly above baseline-monitor closely with diuresis; patient is not routinely followed by a barrel cutter but did see Dr. Nguyen in the past. DO NOT INTUBATE order written per patient request. 02/12/17 - Cardiology EF 20% on Echo - Milrinone 0.375mcg/kg/min drip, hold Coreg - Bumex 2mg IV push and then Bumex 0.5mg /hr drip - Potassium 20meq BID for replacement - Strict I&O, restrict fluids to 2L/day - Monitor renal and electrolytes Chest pain -Denies chest pain at this time - Trend serial troponin levels - EKG prn chest pain Afib - Chronic paroxysmal atrial fibrillation - anticoagulated on warfarin - suboptimal rate control, should improve with diuresis - Continue to monitor cardiac telemetry, may need to add Digoxin for rate control Essential (primary) hypertension Hold home BP meds for now while on Milrinone drip. 02/13/17 - Cardiology PLEASE DO NOT GIVE BETA BLOCKERS. Milrinone gtt decrease to 0.25mcg x4 hrs then stop. Cont bumex. Give dig 0.25mg IV x3 then stop. please call if hr is not goal of less than 110-120. Thank you. 02/14/17 Cardiology Fluid balance -1999. dairy hand stable 2.5. BUN up 76. Afib 100-120. SBP 140-180's. Stop bumex gtt and start bumex 2mg IV q6hrs. Start Cardizem CD 240mg po daily first dose now. Please apply ADOLFO hose and encourage elevation of lower extremities. OK to transfer to floor from cardiology standpoint if ok with attending. Please call if pressure and rate not controlled. Thank you. 02/15/17 Will transfer to surgical floor for continuation of care-intensive needs resolved. Cardiology: - Stop Cardizem - Start Coreg 6.25mg BID - Hold Coumadin today - NPO except for meds after midnight - Plan heart cath tomorrow, either at 0800 or later in the afternoon if INR is improved. Initial Bladder retraining. PT/OT to eval and treat his cardiopulmonary debility. Recheck BMP and MG in am due to IV diuretics and CKD. Repeat CBC in am due to anemia and Coumadin use. 02/16/17 Cath showed 30% lesions. Medical management recommended. IVF started to help flush out cath dye - minimal dye use. Will change Bumex to 2mg BID (0900 and 1400) starting this evening. Decrease potassium to 20mEq with breakfast secondary to decreased diuretics. Will d/c Cadet. PT/OT to assess functional status. Recheck BMP in am due to IV dye use and CKD.
[2017-02-17 04:50] VITALS: RESP 18
[2017-02-17 08:19] VITALS: PULSE 99
[2017-02-17] MEDS: POLYETHYL GLYCOL 3350 17gm PACKET PO SCH (08:35)
[2017-02-17] MEDS: SENNA + DOCUSATE TABLET PO SCH (08:35)
[2017-02-17] MEDS ORDERED: ISOSORBIDE MONONITRATE ER 30 MG TABLET PO SCH (08:35)
[2017-02-17] MEDS: BUMETANIDE 1 MG TABLET PO SCH ×2 (08:36→14:00)
[2017-02-17] MEDS: CARVEDILOL 6.25 MG TABLET PO SCH (08:36)
[2017-02-17] MEDS: HYDRALAZINE 10 MG TABLET PO SCH ×2 (08:37→11:55)
--- NOTE | 2017-02-17 09:46 | Pharmacy Consult ---
Pharmacy Consult-Warfarin - Laboratory Information 02/13/17 02/14/17 02/15/17 04:30 03:58 04:42 INR 4.10 H 2.97 H 2.23 H 02/16/17 02/17/17 03:56 04:19 INR 1.81 H 1.48 H - Consult Information 81 y.o. M with history of a. fib and chronic anticoagulation with warfarin. Home warfarin dose: 5 mg po daily. goal INR = 2.0 to 3.0. INR supra-therapeutic on admission 02/11/17 at 4.10. date INR dose 02/12 5.81 no dose 02/13 4.10 no dose 02/14 2.97 2 mg 02/15 2.23 protocol on hold in preparation for heart cath 02/16 1.81 protocol on hold 02/17 1.48 plan: 4 mg INR is subtherapeutic after being held x 2 days in preparation for heart cath. Will give Warfarin 4 mg today. Pharmacy will continue to monitor and adjust and needed. Thank you, Ciara Guerrero [facility]
--- NOTE | 2017-02-17 11:22 | Progress Note ---
- Date 02/17/17 Subjective: F/U: Acute systolic heart failure, COPD, Stage 4 CKD Doing well this morning. Breathing well-not SOA or having cough/chest congestion. Notes some nasal congestion secondary to allergies. No chest pressure, pain, or palpitations. Urinating well with Cadet out-no pain, burning , or difficulty empting bladder. Very happy to have Cadet out. Ambulating well- not dizzy, unsteady, or SOA with activities. Eating well. Bowels stable. No ab pain. No f/c. Feels ready for discharge to home. Has good support at home and does not need home health. Has perviously had warfarin managed by Dr Aguiar, but would like to change to Dr Joshi as is much closer. Objective Vital signs: Temperature 98 F 02/17/17 07:24 Pulse Rate 99 02/17/17 08:00 Respiratory Rate 18 02/17/17 07:24 Blood Pressure 161/65 H 02/17/17 07:24 Pulse Oximetry 96 02/17/17 07:24 Rhythm: Atrial Fibrillation with RVR Height/Weight/BMI: Height 1.88 m Weight 84.6 kg Body Mass Index 24.5 - Constitutional Present: no acute distress, well nourished, well developed, average body habitus , cooperative. Absent: combative, agitated, somnolent - Routine HEENT Exam Head: Present: normocephalic, atraumatic Eye: Present: EOMI, PERRL. Absent: conjunctival icterus - Routine Respiratory Exam Present: decreased breath sounds. Absent: respiratory distress, rhonchi, wheezes, crackles - Routine Cardiovascular Exam Present: irregular rhythm, irregularly irregular - Routine Abdominal Exam Present: soft, normoactive bowel sounds, non distended, non tender - Routine Extremities Exam Present: no edema, pulses intact. Absent: cyanosis, clubbing - Routine Musculoskeletal Exam Musculoskeletal: Present: no clubbing or cyanosis, normal strength - Routine Skin Exam Present: dry, warm - Routine Neurological Exam Present: alert, oriented X3, CN II-XII intact, moving all extremities, vision grossly intact, hearing grossly intact, normal speech. Absent: motor deficit, altered mental status - Routine Psychiatric Exam Present: normal affect, normal thought process, cooperative, good insight, good judgment. Absent: anxious, agitated Results - Labs CBC & Chem 7: 02/17/17 04:19 02/17/17 04:19 Assessment and Plan (1) Congestive heart failure Problem details: Acute Current visit: Yes Status: Acute (2) Afib Problem details: With RVR Current visit: Yes Status: Chronic (3) Supratherapeutic INR Current visit: Yes Status: Acute (4) Chest pain Current visit: Yes Status: Acute Assessment and Plan: Assessment Acute systolic congestive heart failure - EF ~ 20%. Pulmonary edema (POA) - Resolved ASCAD - medically manageable disease found on cath Chronic Atrial fibrillation RVR at admission - rate improved Chest pain -resolved; no evidence of AMI Stage IV CKD Obstructive sleep apnea-possible Hypertension Macrocytic anemia Iron deficiency Lumbar spinal stenosis COPD Abdominal hernia DJD Coagulopathy due to warfarin Seasonal allergies Stage III pressure ulcer to right sacrum (POA) Plan Medically doing well - Respiratory status stable, creatinine stable at 2.5, Heart rate controlled, ambulating well. Will discharge to home. Diet: Low sodium (2000mg or less a day), may have up to 2 quarts fluid a day. Mechanical soft with regular liquids. Activities: waker for assistance, increase activities as able. Medications changed during hospitalization: Hydralazine 10mg TIDWM for BP. Imdur 30mg AC breakfast. Coreg 6.25mg BIDWM for HR control/BP. Bumex 2mg AM and 1400 for volume control. Potassium 10mEq WB due to diuretic use. Did STOP: Verapamil secondary to decreased EF Clonidine Lasix changed to Bumex. Iron sulfate 325mg and Vitamin C 500mg daily with breakfast secondary to anemia and iron deficiency. Coumadin to continue - patient request Dr Joshi manage his INR. F/U with Dr Berg in 1 week for medical reevaluation - recommend checking BMP secondary to medication use and CBC secondary to anemia F/U with Dr Joshi in 2 weeks for cardiac evaluation. See orders for discharge details. Case discussed with Dr Joshi and CM. Time spent with patient care and discharge greater than 30 minutes. DVT Prophylaxis: Coumadin Resuscitation Status: Do Not Intubate Hospital Course Summary Disclaimer: The visit summary below is not to be considered part of the above Progress Note. Hospital Course: 02/12/17 Patient is admitted to the intensive care unit with dyspnea, chest pain, and A. fib with RVR. Rate control was improved overnight with bolus doses of diltiazem. Given chest pain in association with CHF will initiate carvedilol. Cardiology consult-Dr. Joshi. Echocardiogram ordered. Serial troponins unremarkable today. Diuresis initiated overnight with Lasix, minimally effective and will dose Bumex now. Continue to monitor urine output and weights. Breathing treatments as needed. Home medications being updated; warfarin on hold due to elevated INR. Pharmacy consult to assist with warfarin management. After condition stabilizes will obtain nocturnal oximetry. Creatinine slightly above baseline-monitor closely with diuresis; patient is not routinely followed by a tree care foreman but did see Dr. Nguyen in the past. DO NOT INTUBATE order written per patient request. 02/12/17 - Cardiology EF 20% on Echo - Milrinone 0.375mcg/kg/min drip, hold Coreg - Bumex 2mg IV push and then Bumex 0.5mg /hr drip - Potassium 20meq BID for replacement - Strict I&O, restrict fluids to 2L/day - Monitor renal and electrolytes Chest pain -Denies chest pain at this time - Trend serial troponin levels - EKG prn chest pain Afib - Chronic paroxysmal atrial fibrillation - anticoagulated on warfarin - suboptimal rate control, should improve with diuresis - Continue to monitor cardiac telemetry, may need to add Digoxin for rate control Essential (primary) hypertension Hold home BP meds for now while on Milrinone drip. 02/13/17 - Cardiology PLEASE DO NOT GIVE BETA BLOCKERS. Milrinone gtt decrease to 0.25mcg x4 hrs then stop. Cont Bumex. Give dig 0.25mg IV x3 then stop. please call if hr is not goal of less than 110-120. Thank you. 02/14/17 Cardiology Fluid balance -1999. teller vault stable 2.5. BUN up 76. Afib 100-120. SBP 140-180's. Stop bumex gtt and start bumex 2mg IV q6hrs. Start Cardizem CD 240mg po daily first dose now. Please apply ADOLFO hose and encourage elevation of lower extremities. OK to transfer to floor from cardiology standpoint if ok with attending. Please call if pressure and rate not controlled. Thank you. 02/15/17 Will transfer to surgical floor for continuation of care-intensive needs resolved. Cardiology: - Stop Cardizem - Start Coreg 6.25mg BID - Hold Coumadin today - NPO except for meds after midnight - Plan heart cath tomorrow, either at 0800 or later in the afternoon if INR is improved. Initial Bladder retraining. PT/OT to eval and treat his cardiopulmonary debility. Recheck BMP and MG in am due to IV diuretics and CKD. Repeat CBC in am due to anemia and Coumadin use. 02/16/17 Cath showed 30% lesions. Medical management recommended. IVF started to help flush out cath dye - minimal dye use. Will change Bumex to 2mg BID (0900 and 1400) starting this evening. Decrease potassium to 20mEq with breakfast secondary to decreased diuretics. Will d/c Cadet. PT/OT to assess functional status. Recheck BMP in am due to IV dye use and CKD. 02/17/17 Medically doing well - Respiratory status stable, creatinine stable at 2.5, Heart rate controlled, ambulating well. Will discharge to home. Diet: Low sodium (2000mg or less a day), may have up to 2 quarts fluid a day. Mechanical soft with regular liquids. Activities: waker for assistance, increase activities as able. Medications changed during hospitalization: Hydralazine 10mg TIDWM for BP. Imdur 30mg AC breakfast. Coreg 6.25mg BIDWM for HR control/BP. Bumex 2mg AM and 1400 for volume control. Potassium 10mEq WB due to diuretic use. Did STOP: Verapamil secondary to decreased EF Clonidine Lasix changed to Bumex. Iron sulfate 325mg and Vitamin C 500mg daily with breakfast secondary to anemia and iron deficiency. Coumadin to continue - patient request Dr Joshi manage his INR. F/U with Dr Berg in 1 week for medical reevaluation - recommend checking BMP secondary to medication use and CBC secondary to anemia F/U with Dr Joshi in 2 weeks for cardiac evaluation. See orders for discharge details.
[2017-02-17 12:00] VITALS: BP 95/63; TEMP 97.4; O2SAT 98
[2017-02-17] MEDS ORDERED: WARFARIN 4 MG TABLET PO SCH (12:00)
--- NOTE | 2017-02-17 12:14 | Discharge Summary ---
Discharge Information Date of admission: 02/12/17 02:10 Anticipated date of discharge: 02/17/17 Attending Physician: Octavio Lucero MD Primary care physician: MEAGAN THOMPSON Consults: [facility] Consult/Dr Estrada Reason for consultation: OPEN PLACE ON BUTTOCK Physician Consult: Geovani Joshi Reason For Exam: afib/CP PT/OT - Discharge Diagnosis (1) Congestive heart failure Status: Acute (2) Afib Status: Chronic (3) Supratherapeutic INR Status: Acute (4) Chest pain Status: Acute Discharge diagnosis Acute systolic congestive heart failure - EF ~ 20%. Associated conditions and complications Pulmonary edema (POA) - Resolved Small bilateral pulmonary effusions ASCAD - medically manageable disease found on cath Chronic Atrial fibrillation RVR at admission - rate improved Chest pain -resolved; no evidence of AMI Stage IV CKD Obstructive sleep apnea-possible Hypertension Macrocytic anemia Iron deficiency Lumbar spinal stenosis COPD Abdominal hernia DJD Coagulopathy due to warfarin Seasonal allergies Stage III pressure ulcer to right sacrum (POA) - Procedures Procedures: Date of Exam: 02/16/17 Type of Exam: CA heart cath LT The patient is a pleasant 81-year-old gentleman who was admitted with congestive heart failure and was found to have cardiomyopathy with severe LV dysfunction and has been having chest pain and was referred for further evaluation by cardiac catheterization and possible intervention. Informed consent was obtained after explaining the procedure and the potential risks to the patient including the risk of renal failure and dialysis and the patient agreed to proceed with the procedure. PROCEDURE 1. Left heart catheterization. 2. Coronary angiography. TECHNIQUE He was prepped and draped in the usual sterile techniques. Conscious sedation was performed using Versed and fentanyl. 1% lidocaine was used for local anesthesia. Using modified Seldinger technique, arterial access was obtained into the right radial artery with placement of a 6-Ukrainian arterial sheath. 3000 units of heparin, 300 mcg of nitroglycerin, and 2.5 mg of verapamil were given were given through the arterial sheath. CORONARY ANGIOGRAPHY Left main was free of significant lesions. Left anterior descending artery had diffuse irregularities and disease of up to about 30% with no hemodynamically significant lesions in LAD. Diagonals were small with no significant lesions. Left circumflex artery again had minor irregularities with no stenosis greater than 30%. Right coronary artery had diffuse disease of up to about 30%. The patient tolerated the procedure well with no complications. IMPRESSION 1. Mild coronary artery disease as described above. PLAN Medical management. Date of Exam: 02/12/17 Type of Exam: US ECHO Doppler complete Left atrium is dilated. Left ventricular end-diastolic dimension is increased. Left ventricular wall thickness is normal. Severe global hypokinesia is present with ejection fraction of about 20%. Right atrium is dilated. Right ventricle is normal. Aortic root dimension is normal. Mitral valve shows uaimzsdg-ao-[id number] mitral regurgitation. Aortic valve is a trileaflet structure with moderate aortic insufficiency. Tricuspid valve shows mild-to- moderate tricuspid regurgitation with moderate pulmonary hypertension with estimated pulmonary artery systolic pressure of 52. Pulmonary valve shows mild pulmonary insufficiency. There is no pericardial effusion. Pleural effusion is present. IMPRESSION 1. Severe global hypokinesia with ejection fraction of about 20%. 2. Pleural effusion present. 3. Biatrial dilation. 4. Left ventricular dilation. 5. Vwvurauc-ex-yyodhp severe mitral regurgitation. 6. Moderate aortic insufficiency. 7. Yupd-da-mlqqcpbe tricuspid regurgitation with moderate pulmonary hypertension with estimated pulmonary artery systolic pressure of 52. 8. Mild pulmonary insufficiency. - Laboratory Labs: Admit Lab 02/12/17 00:47 WBC 7.1 Hgb 10.2 L Hct 32.8 L MCV 105.5 H Plt Count 239 Neut % (Auto) 70.7 H Lymph % (Auto) 13.7 L Crane % (Auto) 12.5 H Eos % (Auto) 2.7 Admit Lab 02/12/17 00:47 Sodium 140 Potassium 4.6 Chloride 102 Carbon Dioxide 25 Anion Gap 13 BUN 51.0 H* Creatinine 2.7 H GFR Calculation 23 BUN/Creatinine Ratio 19 Glucose 138 H Calculated Osmolality 285 H Calcium 10.0 Total Bilirubin 0.90 AST 40 ALT 26 Alkaline Phosphatase 67 Troponin I 0.066 B-Natriuretic Peptide 39293 H Total Protein 7.0 Albumin 3.9 Globulin 3.1 Albumin/Globulin Ratio 1.3 Admit INR 02/12/17 00:49 INR 5.81 H* TSH 02/13/17 04:30 TSH 1.31 Iron and B12 levels 02/13/17 02/13/17 04:30 04:30 Iron 41 L TIBC 327 % Saturation 13 Vitamin B12 763 INR at discharge 02/17/17 04:19 INR 1.48 H 02/17/17 04:19 02/17/17 04:19 - Radiology Radiology: Date of Exam: 02/12/17 PROCEDURE: XR chest 1V Findings: Pulmonary vascularity is prominent. Small bilateral pleural effusions. No pneumothorax. Cardiac silhouette is moderately enlarged. Mediastinal contours are stable. Impression: Moderate pulmonary edema, likely due to CHF. Date of Exam: 02/14/17 PROCEDURE: XR chest 1V: Findings: Pulmonary edema has improved with slight decrease in small bilateral pleural effusions. Lower lobe compressive atelectasis remains. No pneumothorax or new infiltrate. Heart size and mediastinal contours are stable. Impression: Improving congestive failure. History of Present Illness HPI: 81 yo M with PMH of CHF and A. Jose Antonio presented to the ED with reports of SOA and chest pain. He reports his symptoms started about 1 day ago, he states that recently he have his medications adjusted by his primary care physician. He reports that he did stop taking his lasix 2 days ago because it "wasn't working ". He describes his chest pain as mild. It is midsternal without radiation. Patient believes that his chest pain is secondary to the shortness of breath. Patient is anticoagulated on Coumadin. Patient has noted increased swelling in his bilateral lower extremities. Patient was at home when his symptoms began. Symptoms have been persistent in nature since onset. Patient denies any other complaints or associated symptoms. Patient was found to have some mild EKG changes, Cardiology was consulted, they recommended admission and patient would be seen in AM. For complete details of the H&P refer to than document. Objective Vital signs: Temperature 97.4 F 02/17/17 11:59 Pulse Rate 99 02/17/17 11:59 Respiratory Rate 18 02/17/17 11:59 Blood Pressure 95/63 02/17/17 11:59 Pulse Oximetry 98 02/17/17 11:59 Rhythm: Atrial Fibrillation with RVR Height/Weight/BMI: Height 1.88 m Weight 84.6 kg Body Mass Index 24.5 Hospital Course This is a general summary of the patient's hospital course. For more details refer to the complete medical record. Hospital course: 02/12/17 Patient is admitted to the intensive care unit with dyspnea, chest pain, and A. fib with RVR. Rate control was improved overnight with bolus doses of diltiazem. Given chest pain in association with CHF will initiate carvedilol. Cardiology consult-Dr. Joshi. Echocardiogram ordered. Serial troponins unremarkable today. Diuresis initiated overnight with Lasix, minimally effective and will dose Bumex now. Continue to monitor urine output and weights. Breathing treatments as needed. Home medications being updated; warfarin on hold due to elevated INR. Pharmacy consult to assist with warfarin management. After condition stabilizes will obtain nocturnal oximetry. Creatinine slightly above baseline-monitor closely with diuresis; patient is not routinely followed by a saw straightener but did see Dr. Nguyen in the past. DO NOT INTUBATE order written per patient request. 02/12/17 - Cardiology EF 20% on Echo - Milrinone 0.375mcg/kg/min drip, hold Coreg - Bumex 2mg IV push and then Bumex 0.5mg /hr drip - Potassium 20meq BID for replacement - Strict I&O, restrict fluids to 2L/day - Monitor renal and electrolytes Chest pain -Denies chest pain at this time - Trend serial troponin levels - EKG prn chest pain Afib - Chronic paroxysmal atrial fibrillation - anticoagulated on warfarin - suboptimal rate control, should improve with diuresis - Continue to monitor cardiac telemetry, may need to add Digoxin for rate control Essential (primary) hypertension Hold home BP meds for now while on Milrinone drip. 02/13/17 - Cardiology PLEASE DO NOT GIVE BETA BLOCKERS. Milrinone gtt decrease to 0.25mcg x4 hrs then stop. Cont Bumex. Give dig 0.25mg IV x3 then stop. please call if hr is not goal of less than 110-120. Thank you. 02/14/17 Cardiology Fluid balance -1999. card tape converter operator stable 2.5. BUN up 76. Afib 100-120. SBP 140-180's. Stop bumex gtt and start bumex 2mg IV q6hrs. Start Cardizem CD 240mg po daily first dose now. Please apply ADOLFO hose and encourage elevation of lower extremities. OK to transfer to floor from cardiology standpoint if ok with attending. Please call if pressure and rate not controlled. Thank you. 02/15/17 Will transfer to surgical floor for continuation of care-intensive needs resolved. Cardiology: - Stop Cardizem - Start Coreg 6.25mg BID - Hold Coumadin today - NPO except for meds after midnight - Plan heart cath tomorrow, either at 0800 or later in the afternoon if INR is improved. Initial Bladder retraining. PT/OT to eval and treat his cardiopulmonary debility. Recheck BMP and MG in am due to IV diuretics and CKD. Repeat CBC in am due to anemia and Coumadin use. 02/16/17 Cath showed 30% lesions. Medical management recommended. IVF started to help flush out cath dye - minimal dye use. Will change Bumex to 2mg BID (0900 and 1400) starting this evening. Decrease potassium to 20mEq with breakfast secondary to decreased diuretics. Will d/c Cadet. PT/OT to assess functional status. Recheck BMP in am due to IV dye use and CKD. 02/17/17 Medically doing well - Respiratory status stable, creatinine stable at 2.5, Heart rate controlled, ambulating well. Will discharge to home. Diet: Low sodium (2000mg or less a day), may have up to 2 quarts fluid a day. Mechanical soft with regular liquids. Activities: waker for assistance, increase activities as able. Off loading buttocks due to sacral wound. Medications changed during hospitalization: Hydralazine 10mg TIDWM for BP. Imdur 30mg AC breakfast. Coreg 6.25mg BIDWM for HR control/BP. Bumex 2mg AM and 1400 for volume control. Potassium 10mEq WB due to diuretic use. Did STOP: Verapamil secondary to decreased EF Clonidine Lasix changed to Bumex. Iron sulfate 325mg and Vitamin C 500mg daily with breakfast secondary to anemia and iron deficiency. Coumadin to continue - patient request Dr Joshi manage his INR. F/U with Dr Berg in 1 week for medical reevaluation - recommend checking BMP secondary to medication use and CBC secondary to anemia F/U with Dr Joshi in 2 weeks for cardiac evaluation. See orders for discharge details. Time spent with patient: discharge greater than 30 minutes DVT Prophylaxis: Coumadin Discharge Plan - Discharge Disposition Discharge Date: 02/17/17 Disposition: 01 Discharged Home, Self-Care *Condition: Stable Reason For Visit (Visit label in EMR): CHF with CP - Discharge Medications *Discharge Medications: New Acetaminophen [Tylenol] 325 - 650 mg PO Q5H PRN tab PRN Reason: Pain Carvedilol [Coreg] 6.25 mg PO BIDWM #60 tab Hydralazine [Apresoline] 10 mg PO TIDWM #90 tab PEG 3350 17gm PACKET [Miralax] 17 gm PO DAILY packet Potassium Chloride [Micro-K] 10 meq PO WB #30 capsule.er Ascorbic Acid [Vitamin C] 500 mg PO WB #1 bottle Bumetanide Tab [Bumex Tab] 2 mg PO [id number] #60 tab Isosorbide Mononitrate ER [Imdur] 30 mg PO ACB #30 tab Senna + Docusate [Senna Plus Tablet] 2 tab PO DAILY tab Ferrous Sulfate [Iron] 325 mg PO WB #1 bottle Continue Warfarin Sodium 5 mg PO DAILY #0 Vitamins A and D [Vitamin A and D] 2 cap PO HS #0 DiphenhydrAMINE [Benadryl] 50 mg PO HS Diazepam [Valium] 5 mg PO PRN Loratadine 10 mg PO DAILY Triamcinolone Acetonide [Nasacort] 2 spray EA NOSTRIL DAILY PRN #0 PRN Reason: Prn Orders Lactobacillus Acidophilus [Probiotic] 1 each PO Discontinued Verapamil HCl [Verapamil ER] 180 mg PO BID #0 Furosemide [Lasix] 1 tab PO BID cloNIDine HCl [Clonidine HCl] 0.1 mg PO BID #0 - Discharge Packet/Instructions *Diet: Mechanical soft diet with regular liquids. Low sodium - 2000mg of sodium a day or less. May have up to 2 quarts of fluid a day. *Activity: Limit activity for 2 days. No lifting more than 10 pounds, no pushing or pulling for [address], operate machinery or drink alcohol for 2 days. Offload right buttock due to sacral wound. *Pain Management/Treatment: Over the counter pain medication if needed. *Wound Care: Remove dressing after 24 hours. Keep site clean and dry. No tub baths or swimming for 1 week. You may shower. Additional Instructions: Check your weight first thing in morning. Record. If weight increased by 4 pound in [address] Joshi. You will need to have your INR (Coumadin monitor) check in Dr Joshi's office on Wednesday02/22/17. Wear compression stocking to legs-put on in am and may remove at night. *Expected Signs/Symptoms: Bruising and tenderness at the site. *Notify Physician if: Site is bleeding, abnormal drainage, increased pain or fever of 101.5 or more. Call if increasing difficulty breathing, weight gain, increasing lower leg swelling. *During Business Hours Contact: Call Dr. Joshi's office at [phone]. *After Business Hours Contact: Please call [phone] and have the compo conveyor operator page the physician. *Pending Lab/Results: No Pending Lab - Referrals/Follow Up *Referrals/Follow Up: MEAGAN THOMPSON [Primary Care Provider] - 1 Week (Hospital follow up for CHF (EF ~ 20 %). Needs BMP checked secondary to medication use and CBC checked secondary to anemia. ) Geovani Joshi MD [Physician] - 2 Weeks (Hospital follow up in 2 weeks. Need to have Coumadin managed by Dr Joshi. ) - Patient Handouts - Dismissal Complete Discharge Instructions are:: Complete Attestation Narriative - Attestation Attestation Narrative: 02/17/17 12:24 I have independently interviewed and examined patient prior to discharge. Pleas see my progress note from today for details. Medically stable for discharge to home.
== END 2017-02-17 14:50 | disposition home or self-care (01) | DRG 286 ==
LOC: ED 00:32 → SUATTDRO 02:10 → CCU 02:10 → ED 02:10 → SRG 02-15 16:55
PROVIDERS: ADMIT Internal Medicine; ATTEND Hospitalist